=== PATIENT | female | born 1995 | race American Indian/Alaskan Native ===

== ENCOUNTER 2016-10-13 09:56 | Emergency (ER) | payer MEDICAID, OTHER ==
[2016-10-13 10:15] VITALS: BP 111/71
[2016-10-13 10:37] LABS: Basophils % (Auto) 0.5 % (0.0-1.8); Eosinophils % (Auto) 2.3 % (0.0-4.3); Hematocrit 42.1 % (30.3-42.9); Hemoglobin 13.8 gm/dl (10.1-14.3); Mean Corpuscular HGB Conc 33 % (30-34); Mean Corpuscular Hemoglobin 30 pg (28-32); Mean Corpuscular Volume 91 fl (79-97); Platelet Count 219 K/mm3 (140-440); Red Blood Count 4.63 M/mm3 (3.65-5.03); Red Cell Distribution Width 15.4 % (13.2-15.2); White Blood Count 6.6 K/mm3 (4.5-11.0)
--- NOTE | 2016-10-13 12:22 | Ultrasound Report ---
ULTRASOUND PELVIS COMPLETE - TRANSABDOMINAL AND TRANSVAGINAL: INDICATION: , vaginal spotting. Serum beta-hCG < 2 units today. COMPARISON: None similar. FINDINGS: Transabdominal and transvaginal pelvic sonography demonstrates a 9.1 x 4.9 x 5.1 cm anteverted uterus with few tiny nonspecific echogenicities. Endometrial thickness 1.2 cm towards the fundus. No evidence of an intrauterine gestation. Normal bilateral ovaries, estimated at 1.3 x 0.8 x 1 cm on the right and 2.5 x 1.6 x 1.3 cm on the left. CONCLUSION: Physiologic pelvic sonogram, as described. Thank you for the opportunity to participate in this patient's care.
[2016-10-13 13:48] LABS: Bilirubin,Urine NEG (Negative); Blood,Urine NEG (Negative); Ketones,Urine TR mg/dL (Negative); Leukocyte Esterase,Urine NEG (Negative); Mucus,Urine 3+ /HPF; Nitrite,Urine NEG (Negative); Protein,Urine <15 mg/dL mg/dL (Negative); Urobilinogen,Urine < 2.0 mg/dL (<2.0)
--- NOTE | 2016-10-13 18:48 | Emergency Department Report ---
Entered by SYLVIA VELASCO, acting as scribe for KALEY MILLER NP. ED Female HPI - General Chief complaint: Urogenital-Female Stated complaint: EVAL FOR ECTOPIC Time Seen by Provider: 10/13/16 12:04 Source: patient Mode of arrival: Ambulatory Limitations: No Limitations - History of Present Illness Initial comments: This is a 20 year old female nontoxic, well nourished in appearance, no acute signs of distress, P:1, presents to ED for evaluation of test 3 weeks ago. Patient states she had a positive at a resource center in [place] 3 weeks ago, but a negative for via ultrasound yesterday in the resource center. Patient states she was referred to ER r/o ectopic . Patient reports vaginal spotting three weeks ago after being seen in the resource center for 4 days. Patient linda denies vaginal bleeding. Denies vaginal discharge, urinary symptoms, abdominal pain, pelvic pain, nausea , dysuria, frequency, urgency, vomiting, fever, chills, headache, chest pain, shortness of breathe, stiff neck, or dizziness. LMP: 08/18/16. -: Gradual, week(s) (3) Severity scale (0 -10): 0 Are you Now?: No Last Menstrual Period: 08/18/16 EDC: 05/25/17 Associated Symptoms: denies other symptoms. denies: vaginal discharge, vaginal bleeding, abdominal pain, nausea/vomiting, fever/chills, headaches, loss of appetite, dysuria, hematuria, rash, seizure, syncope, weakness - Related Data Sexually active: Yes : 2 Para: 1 Home Medications Medication Instructions Recorded Confirmed Last Taken No Known Home Medications [No 10/13/16 10/13/16 Unknown Reported Home Medications] Allergies Allergy/AdvReac Type Severity Reaction Status Date / Time No Known Allergies Allergy Verified 10/13/16 10:08 ED Review of Systems Comment: All other systems reviewed and negative Constitutional: denies: chills, fever Eyes: denies: eye pain, eye discharge, vision change ENT: denies: ear pain, throat pain Respiratory: denies: cough, shortness of breath, wheezing Cardiovascular: denies: chest pain, palpitations Endocrine: no symptoms reported Gastrointestinal: denies: abdominal pain, nausea, diarrhea Genitourinary: denies: urgency, dysuria, frequency, discharge Musculoskeletal: denies: back pain, joint swelling, arthralgia, myalgia Skin: denies: rash, lesions Neurological: denies: headache, weakness, numbness, paresthesias Psychiatric: denies: anxiety, depression Hematological/Lymphatic: denies: easy bleeding, easy bruising ED Past Medical Hx - Past Medical History Previous Medical History?: No Hx Hypertension: No Hx Congestive Heart Failure: No Hx Diabetes: No Hx Deep Vein Thrombosis: No Hx Renal Disease: No Hx Sickle Cell Disease: No Hx Seizures: No Hx Asthma: No Hx COPD: No Hx HIV: No - Surgical History Additional Surgical History: - Social History Smoking Status: Former Smoker Substance Use Type: None - Medications Home Medications: Home Medications Medication Instructions Recorded Confirmed Last Taken Type No Known Home Medications [No 10/13/16 10/13/16 Unknown History Reported Home Medications] ED Physical Exam - General Limitations: No Limitations General appearance: alert, in no apparent distress - Head Head exam: Present: atraumatic, normocephalic, normal inspection - Eye Eye exam: Present: normal appearance, PERRL, EOMI. Absent: scleral icterus, conjunctival injection, nystagmus, periorbital swelling, periorbital tenderness Pupils: Present: normal accommodation. Absent: irregular - ENT ENT exam: Present: normal exam, normal orophraynx, mucous membranes moist, TM's normal bilaterally, normal external ear exam - Neck Neck exam: Present: normal inspection, full ROM. Absent: tenderness, meningismus, lymphadenopathy, thyromegaly - Respiratory Respiratory exam: Present: normal lung sounds bilaterally. Absent: respiratory distress, wheezes, rales, rhonchi, stridor, chest wall tenderness, accessory muscle use, decreased breath sounds, prolonged expiratory - Cardiovascular Cardiovascular Exam: Present: regular rate, normal rhythm, normal heart sounds. Absent: bradycardia, tachycardia, irregular rhythm, systolic murmur, diastolic murmur, rubs, gallop - GI/Abdominal GI/Abdominal exam: Present: soft, normal bowel sounds. Absent: distended, tenderness, guarding, rebound, rigid, diminished bowel sounds - Rectal Rectal exam: Present: deferred - External exam: Present: normal external exam. Absent: erythema, swelling, lesions, lacerations, ecchymosis, bleeding Speculum exam: Present: normal speculum exam, other (OS closed. sales strategy manager Sylvia Humpry present during exam). Absent: erythema, vaginal discharge, cervical discharge, vaginal bleeding, foreign body, tissue, laceration Bi-manual exam: Present: normal bi-manual exam, other (sales strategy manager Sylvia Humpry present during exam). Absent: cervical motion tendernes, adnexal tenderness, adnexal mass, uterine enlargement, uterine tenderness - Extremities Exam Extremities exam: Present: normal inspection, full ROM, normal capillary refill. Absent: tenderness, pedal edema, joint swelling, calf tenderness - Back Exam Back exam: Present: normal inspection, full ROM. Absent: tenderness, CVA tenderness (R), CVA tenderness (L), muscle spasm, paraspinal tenderness, vertebral tenderness, rash noted - Neurological Exam Neurological exam: Present: alert, oriented X3, CN II-XII intact, normal gait, reflexes normal - Psychiatric Psychiatric exam: Present: normal affect, normal mood - Skin Skin exam: Present: warm, dry, intact, normal color. Absent: rash ED Course Vital Signs 10/13/16 10:10 Temperature 98.1 F Pulse Rate 80 Respiratory 18 Rate Blood Pressure 111/71 O2 Sat by Pulse 100 Oximetry - Reevaluation(s) Reevaluation #1: 10/13/16 13:24 Patient is able to speak in full sentences with no signs of distress noted. ED Medical Decision Making - Lab Data Result diagrams: 10/13/16 10:23 - Medical Decision Making Ed course: This is a 20-year-old female that presents with mischarge 1- patient was examined by myself. sales strategy manager Sylvia Humpry present during vaginal exam. OS clsoed. No signs of bleeding. NO abd pain. US pelvic and transvaginal obtained with no IUG. 2- Patient was notified of US finding with no questions noted by the patient. 3- Patient was instructed to follow-up with a anesthesiologist and critical care in 3-5 days or symptoms such as increased bleeding, pelvic pain, abdominal pain, fever, chills , nausea or vomiting returns or emergency room as was possible. 4- At time time of discharge, the patient does not seem toxic or ill in appearance. No acute signs of distress noted. Patient agrees to discharge treatment plan of care. No further questions noted by the patient. ED Disposition Clinical Impression: Miscarriage Disposition: DC-01 TO HOME OR SELFCARE Is pt being admited?: No Does the pt Need Aspirin: No Condition: Stable Instructions: Spontaneous Miscarriage (ED) Additional Instructions: follow-up with a anesthesiologist and critical care in 3-5 days or symptoms such as increased bleeding , pelvic pain, abdominal pain, fever, chills, nausea or vomiting returns or emergency room as was possible. Referrals: PRIMARY CARE, [Primary Care Provider] - 3-5 Days DEANDRE PAINTER MD [Staff Physician] - 3-5 Days [facility] [Outside] - 3-5 Days [facility] [Outside] - 3-5 Days Forms: Work/School Release Form(ED) This documentation as recorded by the ROD kirkpatrick PEARL,accurately reflects the service I personally performed and the decisions made by me,KALEY MILLER, BREEDER SERVICE TECHNICIAN.
== END 2016-10-13 14:09 | disposition home or self-care (01) ==
LOC: ED 09:56
DX: O03.9 Complete or unspecified spontaneous abortion without complication (principal); Z87.891 Personal history of nicotine dependence
CPT/HCPCS: 36415; 76830; 76856; 81001; 84702; 85025; 99284

== ENCOUNTER 2017-01-04 19:36 | Emergency (ER) | payer SELFPAY ==
[2017-01-04 20:47] LABS: Basophils % (Auto) 0.5 % (0.0-1.8); Eosinophils % (Auto) 1.5 % (0.0-4.3); Hematocrit 42.9 % (30.3-42.9); Hemoglobin 14.2 gm/dl (10.1-14.3); Mean Corpuscular HGB Conc 33 % (30-34); Mean Corpuscular Hemoglobin 30 pg (28-32); Mean Corpuscular Volume 90 fl (79-97); Platelet Count 215 K/mm3 (140-440); Red Blood Count 4.74 M/mm3 (3.65-5.03); Red Cell Distribution Width 13.8 % (13.2-15.2); White Blood Count 6.9 K/mm3 (4.5-11.0)
[2017-01-05 01:44] VITALS: BP 109/70
[2017-01-05] MEDS ORDERED: ANTIBIOTIC OINT TP ONE (04:05)
--- NOTE | 2017-01-05 04:05 | Emergency Department Report ---
ED General Adult HPI - General Chief complaint: Vaginal Bleeding Stated complaint: BREAST PAIN Time Seen by Provider: 01/05/17 03:55 Source: patient, RN notes reviewed Mode of arrival: Ambulatory Limitations: No Limitations - History of Present Illness Initial comments: This is a 21-year-old female, the patient is previously unknown to this provider , the patient presents to the ER the complaint of bilateral breast discomfort, discharge, and skin discoloration. This has been going on for the past week. It is constant. It does not have exacerbating or relieving factors. Contrary to what is documented in the triage nurse note, the patient does not complain of abdominal pain to this provider. She denies headache, neck pain, chest pain , abdominal pain, irritative/obstructive urinary symptoms, vaginal discharge, vaginal discomfort, and sore throat. -: Gradual Location: chest Radiation: non-radiation Severity scale (0 -10): 6 Quality: aching Consistency: constant Improves with: none Worsens with: none Associated Symptoms: denies other symptoms - Related Data Previous Rx's Medication Instructions Recorded Last Taken Type Bacitracin Zinc Oint [Antibiotic 28.4 gm TP BID #1 oint...g. 01/05/17 Unknown Rx Oint] Allergies Allergy/AdvReac Type Severity Reaction Status Date / Time No Known Allergies Allergy Verified 10/13/16 10:08 ED Review of Systems ROS: Stated complaint: BREAST PAIN Other details as noted in HPI Constitutional: denies: fever Eyes: denies: eye discharge ENT: denies: epistaxis Respiratory: denies: cough Cardiovascular: denies: syncope Gastrointestinal: denies: vomiting Genitourinary: denies: urgency, dysuria Skin: rash, lesions Neurological: denies: weakness ED Past Medical Hx - Past Medical History Previous Medical History?: No Hx Hypertension: No Hx Congestive Heart Failure: No Hx Diabetes: No Hx Deep Vein Thrombosis: No Hx Renal Disease: No Hx Sickle Cell Disease: No Hx Seizures: No Hx Asthma: No Hx COPD: No Hx HIV: No - Surgical History Past Surgical History?: Yes Additional Surgical History: - Social History Smoking Status: Former Smoker Substance Use Type: None - Medications Home Medications: Home Medications Medication Instructions Recorded Confirmed Last Taken Type Bacitracin Zinc Oint [Antibiotic 28.4 gm TP BID #1 oint...g. 01/05/17 Unknown Rx Oint] ED Physical Exam - General Limitations: No Limitations General appearance: alert, in no apparent distress - Head Head exam: Present: atraumatic, normocephalic - Eye Eye exam: Present: normal appearance, EOMI. Absent: nystagmus - ENT ENT exam: Present: normal exam, normal orophraynx, mucous membranes moist, normal external ear exam - Neck Neck exam: Present: normal inspection, full ROM. Absent: tenderness, meningismus - Respiratory Respiratory exam: Present: normal lung sounds bilaterally (escorted by rn Deanne proctor during breast exam), other (the bilateral breast exam demonstrates hyperpigmentation around the bilateral aeroli, excoriations, and puslike discharge. The breasts are otherwise nontender, and there is no axillary adenopathy). Absent: respiratory distress, wheezes, rales, rhonchi, stridor, chest wall tenderness - Cardiovascular Cardiovascular Exam: Present: regular rate, normal rhythm, normal heart sounds. Absent: bradycardia, tachycardia, irregular rhythm, systolic murmur, diastolic murmur, rubs, gallop - GI/Abdominal GI/Abdominal exam: Present: soft, normal bowel sounds. Absent: distended, tenderness, guarding, rebound, rigid, pulsatile mass - Extremities Exam Extremities exam: Present: normal inspection, full ROM, normal capillary refill. Absent: pedal edema, joint swelling, calf tenderness - Back Exam Back exam: Present: normal inspection, full ROM. Absent: tenderness, CVA tenderness (R), CVA tenderness (L), muscle spasm, paraspinal tenderness, vertebral tenderness - Neurological Exam Neurological exam: Present: alert, oriented X3, normal gait, other (Extraocular movements intact. Tongue midline. No facial droop. Facial sensation intact to light touch in the V1, V2, V3 distribution bilaterally. 5 and 5 strength in 4 extremities.. Sensation is intact to light touch in 4 extremities.). Absent : motor sensory deficit - Psychiatric Psychiatric exam: Present: normal affect, normal mood - Skin Skin exam: Present: warm, rash. Absent: intact ED Course Vital Signs 01/04/17 01/05/17 20:16 01:42 Temperature 98.5 F 98.1 F Pulse Rate 70 67 Respiratory 20 20 Rate Blood Pressure 125/78 109/70 O2 Sat by Pulse 100 99 Oximetry ED Medical Decision Making - Lab Data Result diagrams: 01/04/17 20:26 Vital Signs 01/04/17 01/05/17 20:16 01:42 Temperature 98.5 F 98.1 F Pulse Rate 70 67 Respiratory 20 20 Rate Blood Pressure 125/78 109/70 O2 Sat by Pulse 100 99 Oximetry Lab Results 01/04/17 01/04/17 01/04/17 Range/Units 20:26 20:26 20:26 WBC 6.9 (4.5-11.0) K/mm3 RBC 4.74 (3.65-5.03) M/mm3 Hgb 14.2 (10.1-14.3) gm/dl Hct 42.9 (30.3-42.9) % MCV 90 (79-97) fl MCH 30 (28-32) pg MCHC 33 (30-34) % RDW 13.8 (13.2-15.2) % Plt Count 215 (140-440) K/mm3 Lymph % (Auto) 50.9 H (13.4-35.0) % [place] % (Auto) 8.5 H (0.0-7.3) % Eos % (Auto) 1.5 (0.0-4.3) % Baso % (Auto) 0.5 (0.0-1.8) % Lymph # 3.5 (1.2-5.4) K/mm3 [place] # 0.6 (0.0-0.8) K/mm3 Eos # 0.1 (0.0-0.4) K/mm3 Baso # 0.0 (0.0-0.1) K/mm3 Seg Neutrophils % 38.6 L (40.0-70.0) % Seg Neutrophils # 2.7 (1.8-7.7) K/mm3 HCG, Quant < 2 (0-4) mIU/mL Urine Color (Yellow) Urine Turbidity (Clear) Urine pH (5.0-7.0) Ur Specific [place] (1.003-1.030) Urine Protein (Negative) mg/dL Urine Glucose (UA) (Negative) mg/dL Urine Ketones (Negative) mg/dL Urine Blood (Negative) Urine Nitrite (Negative) Urine Bilirubin (Negative) Urine Urobilinogen (<2.0) mg/dL Ur Leukocyte Esterase (Negative) Urine WBC (Auto) (0.0-6.0) /HPF Urine RBC (Auto) (0.0-6.0) /HPF U Epithel Cells (Auto) (0-13.0) /HPF Urine Mucus /HPF Blood Type A POSITIVE Antibody Screen TNR JUNIOR Antibody Screen Negative 01/05/17 Range/Units 03:42 WBC (4.5-11.0) K/mm3 RBC (3.65-5.03) M/mm3 Hgb (10.1-14.3) gm/dl Hct (30.3-42.9) % MCV (79-97) fl MCH (28-32) pg MCHC (30-34) % RDW (13.2-15.2) % Plt Count (140-440) K/mm3 Lymph % (Auto) (13.4-35.0) % [place] % (Auto) (0.0-7.3) % Eos % (Auto) (0.0-4.3) % Baso % (Auto) (0.0-1.8) % Lymph # (1.2-5.4) K/mm3 [place] # (0.0-0.8) K/mm3 Eos # (0.0-0.4) K/mm3 Baso # (0.0-0.1) K/mm3 Seg Neutrophils % (40.0-70.0) % Seg Neutrophils # (1.8-7.7) K/mm3 HCG, Quant (0-4) mIU/mL Urine Color Yellow (Yellow) Urine Turbidity Clear (Clear) Urine pH 6.0 (5.0-7.0) Ur Specific [place] 1.031 H (1.003-1.030) Urine Protein 100 mg/dl (Negative) mg/dL Urine Glucose (UA) Neg (Negative) mg/dL Urine Ketones 80 (Negative) mg/dL Urine Blood Lg (Negative) Urine Nitrite Neg (Negative) Urine Bilirubin Neg (Negative) Urine Urobilinogen 4.0 (<2.0) mg/dL Ur Leukocyte Esterase Tr (Negative) Urine WBC (Auto) 25.0 H (0.0-6.0) /HPF Urine RBC (Auto) > 182.0 (0.0-6.0) /HPF U Epithel Cells (Auto) 1.0 (0-13.0) /HPF Urine Mucus 3+ /HPF Blood Type Antibody Screen JUNIOR Antibody Screen - Medical Decision Making Differential diagnosis: Cancer, malignancy, pressure ulcers, skin excoriation Assessment and plan: 21-year-old female with excoriated pimples and pressure sensitive areas, reports wearing a new brassiere, does not appear to be superinfected, patient is instructed to use a brassiere that is less tight, she' ll be given bacitracin, and is instructed to follow-up with either outpatient primary care or breast physician to exclude atypical presentation of malignancy. Critical care attestation.: If time is entered above; I have spent that time in minutes in the direct care of this critically ill patient, excluding procedure time. ED Disposition Clinical Impression: Breast lesion Disposition: TO HOME OR SELFCARE Is pt being admited?: No Does the pt Need Aspirin: No Condition: Stable Instructions: Breast Self-exam (ED), Breast Mass (ED) Additional Instructions: Follow up with any of the listed primary care doctor/breast specialist/ tanning salon attendant within the next month. Start to wear a brassiere that is less tight, and apply bacitracin antibiotic ointment as is needed. It is very important to follow-up with an outpatient physician/breast specialist to exclude cancer/tumor/malignancy. Return to the ER right away with new pain, worsening pain, migration of pain, fevers, chills, lethargy, irritability, projectile vomiting, change in mental status, confusion, loss of consciousness, inability to tolerate liquid feeds. Referrals: PRIMARY CAREMD [Primary Care Provider] - 3-5 Days HIRO UP MD [Staff Physician] - 3-5 Days [facility] [Provider Group] - 3-5 Days [facility] [Provider Group] - 3-5 Days [facility] [Provider Group] - 3-5 Days
[2017-01-05 04:06] LABS: Bilirubin,Urine NEG (Negative); Blood,Urine LG (Negative); Ketones,Urine 80 mg/dL (Negative); Leukocyte Esterase,Urine TR (Negative); Mucus,Urine 3+ /HPF; Nitrite,Urine NEG (Negative)
[2017-01-05 04:10] LABS: RBC,Urine > 182.0 /HPF (0.0-6.0)
== END 2017-01-05 04:35 | disposition home or self-care (01) ==
LOC: ED 19:36
DX: N63.0 Unspecified lump in unspecified breast (principal); Z87.891 Personal history of nicotine dependence; Z98.890 Other specified postprocedural states
CPT/HCPCS: 36415; 81001; 84702; 85025; 86850; 86900; 86901; 99283

== ENCOUNTER 2017-09-17 16:43 | Emergency (ER) | payer MEDICAID ==
[2017-09-17 17:15] LABS: Bilirubin,Urine NEG (Negative); Blood,Urine NEG (Negative); Color,Urine Yellow (Yellow); Mucus,Urine 3+ /HPF; Protein,Urine <15 mg/dL mg/dL (Negative)
[2017-09-17 17:17] LABS: HCG Qualitative,Urine Positive (Negative)
--- NOTE | 2017-09-17 19:21 | Emergency Department Report ---
ED Female HPI - General Chief complaint: Abdominal Pain Stated complaint: ABDOMINAL PAIN Time Seen by Provider: 09/17/17 19:13 Source: patient Mode of arrival: Ambulatory Limitations: No Limitations - History of Present Illness Initial comments: 21-year-old female past medical history none presents with complaint of intermittent crampy pain for several days. Patient states she may have had some spotting 2 weeks ago. Patient states that she was previously on Depo- Provera and has had irregular periods for several months. Stopped up O4 months ago. Patient unsure if she is currently . Complaining of breast swelling and morning nausea alert and oriented 3. Also complaining of slight dysuria. Denies any vaginal discharge or hematuria or current vaginal bleeding. Pain is mild. Awake alert and oriented 3 nontoxic appearing. MD Complaint: pelvic pain Onset/Timin -: days(s) Location: suprapubic Severity: mild Quality: cramping Consistency: intermittent - Related Data Sexually active: Yes : 2 Para: 1 Previous Rx's Medication Instructions Recorded Last Taken Type Bacitracin Zinc Oint [Antibiotic 28.4 gm TP BID #1 oint...g. 01/05/17 Unknown Rx Oint] Acetaminophen [Acetaminophen TAB] 500 mg PO Q6HR PRN #20 tablet 09/17/17 Unknown Rx Doxylamine Succinate/Vit B6 1 each PO QHS PRN #20 tablet. 09/17/17 Unknown Rx [Dicnatasha Alcantar 10-10 mg Tablet] Nitrofurantoin Monohyd/M-Cryst 100 mg PO BID #14 capsule 09/17/17 Unknown Rx [Macrobid 100 mg Capsule] 21/Iron Fu/Folic Acid 1 each PO QDAY #30 tablet 09/17/17 Unknown Rx [ Complete Caplet] Allergies Allergy/AdvReac Type Severity Reaction Status Date / Time No Known Allergies Allergy Verified 09/17/17 16:48 ED Review of Systems ROS: Stated complaint: ABDOMINAL PAIN Other details as noted in HPI Constitutional: denies: chills, fever Eyes: denies: eye pain, eye discharge, vision change ENT: denies: ear pain, throat pain Respiratory: denies: cough, shortness of breath, wheezing Cardiovascular: denies: chest pain, palpitations Endocrine: no symptoms reported Gastrointestinal: denies: abdominal pain, nausea, diarrhea Genitourinary: denies: urgency, dysuria, discharge Musculoskeletal: denies: back pain, joint swelling, arthralgia Skin: denies: rash, lesions Neurological: denies: headache, weakness, paresthesias Psychiatric: denies: anxiety, depression Hematological/Lymphatic: denies: easy bleeding, easy bruising ED Past Medical Hx - Past Medical History Hx Hypertension: No Hx Congestive Heart Failure: No Hx Diabetes: No Hx Deep Vein Thrombosis: No Hx Renal Disease: No Hx Sickle Cell Disease: No Hx Seizures: No Hx Asthma: No Hx COPD: No Hx HIV: No - Surgical History Additional Surgical History: - Social History Smoking Status: Never Smoker Substance Use Type: Alcohol - Medications Home Medications: Home Medications Medication Instructions Recorded Confirmed Last Taken Type Bacitracin Zinc Oint [Antibiotic 28.4 gm TP BID #1 oint...g. 01/05/17 Unknown Rx Oint] Acetaminophen [Acetaminophen TAB] 500 mg PO Q6HR PRN #20 tablet 09/17/17 Unknown Rx Doxylamine Succinate/Vit B6 1 each PO QHS PRN #20 tablet. 09/17/17 Unknown Rx [Diclegis Dr 10-10 mg Tablet] Nitrofurantoin Monohyd/M-Cryst 100 mg PO BID #14 capsule 09/17/17 Unknown Rx [Macrobid 100 mg Capsule] 21/Iron Fu/Folic Acid 1 each PO QDAY #30 tablet 09/17/17 Unknown Rx [ Complete Caplet] ED Physical Exam - General Limitations: No Limitations General appearance: alert, in no apparent distress - Head Head exam: Present: atraumatic, normocephalic - Eye Eye exam: Present: normal appearance - ENT ENT exam: Present: mucous membranes moist - Neck Neck exam: Present: normal inspection - Respiratory Respiratory exam: Present: normal lung sounds bilaterally. Absent: respiratory distress - Cardiovascular Cardiovascular Exam: Present: regular rate, normal rhythm. Absent: systolic murmur, diastolic murmur, rubs, gallop - GI/Abdominal GI/Abdominal exam: Present: soft, normal bowel sounds - External exam: Present: normal external exam Speculum exam: Present: normal speculum exam Bi-manual exam: Present: normal bi-manual exam - Extremities Exam Extremities exam: Present: normal inspection - Back Exam Back exam: Present: normal inspection - Neurological Exam Neurological exam: Present: alert, oriented X3 - Psychiatric Psychiatric exam: Present: normal affect, normal mood - Skin Skin exam: Present: warm, dry, intact, normal color. Absent: rash ED Course Vital Signs 09/17/17 16:48 Temperature 98.0 F Pulse Rate 106 H Respiratory 20 Rate Blood Pressure 134/78 O2 Sat by Pulse 99 Oximetry ED Medical Decision Making - Lab Data Result diagrams: 09/17/17 19:46 09/17/17 19:46 - Medical Decision Making A/P: Early versus ectopic, morning sickness, UTI 1-Macrobid empirically for UTI, urine culture sent 2-case discussed with on-call physician for [facility] [employer] Dr. Juan Manuel Zavala. I discussed results of ultrasound and clinical symptoms and hCG level. Patient to follow-up in office or in the ED in 48 hours for repeat beta level and possible ultrasound. 3-pt given strict ectopic precautions to return to the ED for any severe abdominal pain severe vaginal hemorrhage fevers chills persistent nausea and vomiting 4- vital signs stable for discharge. Patient is Rh+ Critical care attestation.: If time is entered above; I have spent that time in minutes in the direct care of this critically ill patient, excluding procedure time. ED Disposition Clinical Impression: Morning sickness Qualifiers: Weeks of gestation: less than 8 weeks Qualified Code(s): Z3A.01 - Less than 8 weeks gestation of Abdominal pain Qualifiers: Abdominal location: unspecified location Qualified Code(s): R10.9 - Unspecified abdominal pain Disposition: DC-01 TO HOME OR SELFCARE Is pt being admited?: No Does the pt Need Aspirin: No Condition: Stable Instructions: Ectopic (ED), Morning Sickness (ED), (ED), Abdominal Pain (ED) Additional Instructions: Patient advised to follow-up in office or in the ED in 48 hours for repeat blood work and possible ultrasound. Patient given precautions to return to the ED for any heavy vaginal bleeding nausea vomiting fever chills or severe abdominal pain. Prescriptions: Doxylamine Succinate/Vit B6 [Shivam Alcantar 10-10 mg Tablet] 1 each PO QHS PRN #20 tablet. PRN Reason: Nausea Acetaminophen [Acetaminophen TAB] 500 mg PO Q6HR PRN #20 tablet PRN Reason: Pain , Severe (7-10) Nitrofurantoin Monohyd/M-Cryst [Macrobid 100 mg Capsule] 100 mg PO BID #14 capsule 21/Iron Fu/Folic Acid [ Complete Caplet] 1 each PO QDAY #30 tablet Referrals: [facility] [Provider Group] - 3-5 Days JUAN MANUEL ZAVALA MD [Staff Physician] - 3-5 Days Time of Disposition: 22:13
[2017-09-17 20:13] LABS: Basophils % (Auto) 0.3 % (0.0-1.8); Eosinophils % (Auto) 0.3 % (0.0-4.3); Hematocrit 43.6 % (30.3-42.9); Hemoglobin 14.3 gm/dl (10.1-14.3); Lymphocytes # (Auto) 1.4 K/mm3 (1.2-5.4); Lymphocytes % (Auto) 20.3 % (13.4-35.0); Mean Corpuscular HGB Conc 33 % (30-34); Mean Corpuscular Hemoglobin 30 pg (28-32); Mean Corpuscular Volume 93 fl (79-97); Monocytes # (Auto) 0.6 K/mm3 (0.0-0.8); Monocytes % (Auto) 8.8 % (0.0-7.3); Platelet Count 214 K/mm3 (140-440); Red Cell Distribution Width 14.6 % (13.2-15.2)
[2017-09-17 20:22] LABS: BUN/Creatinine Ratio 20; Blood Urea Nitrogen 10 mg/dL (7-17); Calcium 9.3 mg/dL (8.4-10.2); Hemolysis Index 7
--- NOTE | 2017-09-17 20:30 | Ultrasound Report ---
FINAL REPORT EXAM: US OB TRANSVAGINAL HISTORY: preg w/ abd pain positive urine test, LMP unknown, pelvic pain and cramping TECHNIQUE: Transvesical and endovaginal pelvic sonographic imaging were performed. Comparison: None FINDINGS: The uterus is normally anteverted measuring 8.7 x 4.7 x 5.6 centimeters. There is endometrial canal fluid. No gestational sac is identified. Right ovary measures 3.3 x 2.1 x 2.5 centimeters, with normal color flow and normal sonographic appearance. Left ovary measures 2.6 x 1.8 x 1.8 centimeters with multiple small follicles and a dominant 1.3 centimeter crenated appearing cystic lesion. No free pelvic fluid. IMPRESSION: No intrauterine gestation identified. Endometrial canal fluid identified. Left adnexal crenating appearing 1.3 centimeter cystic lesion. No ring of fire identified to suggest ectopic although ectopic cannot be excluded. Recommend correlation with serial beta hCGs and follow-up ultrasound.
--- NOTE | 2017-09-17 20:31 | Ultrasound Report ---
FINAL REPORT EXAM: US OB < = 14 WEEKS FETUS HISTORY: , abd pain LMP unknown, positive urine test TECHNIQUE: Transvesical and endovaginal pelvic sonographic imaging were performed. Comparison: None FINDINGS: The uterus is normally anteverted measuring 8.7 x 4.7 x 5.6 centimeters. There is endometrial canal fluid. No gestational sac is identified. Right ovary measures 3.3 x 2.1 x 2.5 centimeters, with normal color flow and normal sonographic appearance. Left ovary measures 2.6 x 1.8 x 1.8 centimeters with multiple small follicles and a dominant 1.3 centimeter crenated appearing cystic lesion. No free pelvic fluid. IMPRESSION: No intrauterine gestation identified. Endometrial canal fluid identified. Left adnexal crenating appearing 1.3 centimeter cystic lesion. No ring of fire identified to suggest ectopic although ectopic cannot be excluded. Recommend correlation with serial beta hCGs and follow-up ultrasound.
[2017-09-17] MEDS ORDERED: MACROBID PO ONE (22:15)
[2017-09-17 23:32] VITALS: BP 130/66
== END 2017-09-17 22:32 | disposition home or self-care (01) ==
LOC: ED 16:43
DX: O26.891 Other specified pregnancy related conditions, first trimester (principal); R10.9 Unspecified abdominal pain; Z3A.01 Less than 8 weeks gestation of pregnancy
CPT/HCPCS: 36415; 76801; 76817; 80048; 81001; 81025; 84702; 85025; 86900; 86901; 99284

== ENCOUNTER 2017-11-25 10:23 | Emergency (ER) | payer MEDICAID ==
--- NOTE | 2017-11-25 11:32 | Emergency Department Report ---
ED Abdominal Pain HPI - General Chief Complaint: Nausea/Vomiting/Diarrhea Stated Complaint: 14WKS /VOMITING Time Seen by Provider: 11/25/17 11:23 Source: patient, family Mode of arrival: Ambulatory Limitations: No Limitations - History of Present Illness Initial Comments: Patient report nausea vomiting for 5-6 days. She says she has an appointment with her [facility] in Monday which [facility]. She says she had no problems with her but she is having some abdominal cramping also. Crepitus to her upper abdomen. Patient says she feels weak because she cannot eat anything. Denies any vaginal bleeding or discharge. She says she is in THE PAST AND EVERYTHING WAS FINE. PATIENT ABDOMEN IS 6 OUT OF 10 CRAMPING AND AN INTERMITTENT NO MEDICATION TAKEN. PATIENT WAS HERE ON 09/17/2017 AND WAS GIVEN PRESCRIPTION FOR Diclegis JUST AND ALSO TREATED FOR URINARY TRACT INFECTION SHE SAYS SHE DOES NOT REMEMBER GIVEN A PRESCRIPTION FOR Diclegis SO THEREFORE SHE IS NOT TAKEN MEDICINE. Denies any urinary burning, frequency or urgency. Denies any back pain or fever or chills. Denies any shortness of breath or chest pain. MD Complaint: abdominal pain, other (nausea and vomiting) Onset/Timin -: days(s) Location: epigastric Radiation: none Migration to: no migration Severity: moderate Severity scale (0 -10): 6 Quality: cramping Consistency: intermittent Improves With: nothing Worsens With: nothing Associated Symptoms: nausea, vomiting, other (feeling weak). denies: diarrhea, fever, chills, constipation, dysuria, hematemesis, hematochezia, melena, hematuria, anorexia, syncope Treatments Prior to Arrival: other ( none) - Related Data LMP (females 10-50): Previous Rx's Medication Instructions Recorded Last Taken Type Bacitracin Zinc Oint [Antibiotic 28.4 gm TP BID #1 oint...g. 01/05/17 Unknown Rx Oint] Acetaminophen [Acetaminophen TAB] 500 mg PO Q6HR PRN #20 tablet 09/17/17 Unknown Rx Nitrofurantoin Monohyd/M-Cryst 100 mg PO BID #14 capsule 09/17/17 Unknown Rx [Macrobid 100 mg Capsule] 21/Iron Fu/Folic Acid 1 each PO QDAY #30 tablet 09/17/17 Unknown Rx [ Complete Caplet] Doxylamine Succinate/Vit B6 1 each PO QHS PRN #30 tablet. 11/25/17 Unknown Rx [Shivam Alcantar 10-10 mg Tablet] cephALEXin [Keflex] 500 mg PO Q12H 7 Days #14 cap 11/25/17 Unknown Rx Allergies Allergy/AdvReac Type Severity Reaction Status Date / Time No Known Allergies Allergy Verified 11/25/17 10:28 ED Review of Systems ROS: Stated complaint: 14WKS /VOMITING Other details as noted in HPI Constitutional: weakness. denies: chills, fever Eyes: denies: eye pain, eye discharge, vision change ENT: denies: ear pain, throat pain, congestion Respiratory: denies: cough, shortness of breath, SOB with exertion, SOB at rest , stridor, wheezing Cardiovascular: denies: chest pain, palpitations, dyspnea on exertion, edema, syncope Gastrointestinal: abdominal pain, nausea, vomiting. denies: diarrhea, constipation, hematemesis, hematochezia Genitourinary: denies: urgency, dysuria, frequency, hematuria, discharge Musculoskeletal: denies: back pain, joint swelling, arthralgia Skin: denies: rash, lesions Neurological: weakness. denies: headache, paresthesias ED Past Medical Hx - Past Medical History Previous Medical History?: No Hx Hypertension: No Hx Congestive Heart Failure: No Hx Diabetes: No Hx Deep Vein Thrombosis: No Hx Renal Disease: No Hx Sickle Cell Disease: No Hx Seizures: No Hx Asthma: No Hx COPD: No Hx HIV: No - Surgical History Past Surgical History?: Yes Additional Surgical History: - Family History Family history: hypertension - Social History Smoking Status: Never Smoker Substance Use Type: None - Medications Home Medications: Home Medications Medication Instructions Recorded Confirmed Last Taken Type Bacitracin Zinc Oint [Antibiotic 28.4 gm TP BID #1 oint...g. 01/05/17 Unknown Rx Oint] Acetaminophen [Acetaminophen TAB] 500 mg PO Q6HR PRN #20 tablet 09/17/17 Unknown Rx Nitrofurantoin Monohyd/M-Cryst 100 mg PO BID #14 capsule 09/17/17 Unknown Rx [Macrobid 100 mg Capsule] 21/Iron Fu/Folic Acid 1 each PO QDAY #30 tablet 09/17/17 Unknown Rx [ Complete Caplet] Doxylamine Succinate/Vit B6 1 each PO QHS PRN #30 tablet. 11/25/17 Unknown Rx [Shivam Alcantar 10-10 mg Tablet] cephALEXin [Keflex] 500 mg PO Q12H 7 Days #14 cap 11/25/17 Unknown Rx ED Physical Exam - General Limitations: No Limitations General appearance: alert, in no apparent distress - Head Head exam: Present: atraumatic, normocephalic, normal inspection - Eye Eye exam: Present: normal appearance, PERRL, EOMI Pupils: Present: normal accommodation - ENT ENT exam: Present: normal orophraynx, mucous membranes dry, TM's normal bilaterally, normal external ear exam. Absent: normal exam - Neck Neck exam: Present: normal inspection, full ROM. Absent: tenderness, lymphadenopathy - Respiratory Respiratory exam: Present: normal lung sounds bilaterally. Absent: respiratory distress, chest wall tenderness - Cardiovascular Cardiovascular Exam: Present: normal rhythm, tachycardia, normal heart sounds. Absent: systolic murmur, diastolic murmur - GI/Abdominal GI/Abdominal exam: Present: soft, normal bowel sounds. Absent: distended, tenderness, guarding, rebound, rigid, mass - Extremities Exam Extremities exam: Present: normal inspection, full ROM, normal capillary refill , other (No cce. + 2 pulses in all extremities, no neurovascular compromise). Absent: tenderness, pedal edema, joint swelling, calf tenderness - Back Exam Back exam: Present: normal inspection, full ROM, other (ambulates without any difficulties). Absent: tenderness, CVA tenderness (R), CVA tenderness (L), muscle spasm, paraspinal tenderness, vertebral tenderness, rash noted - Neurological Exam Neurological exam: Present: alert, oriented X3, normal gait, reflexes normal. Absent: motor sensory deficit - Psychiatric Psychiatric exam: Present: normal affect, normal mood - Skin Skin exam: Present: warm, dry, intact, normal color. Absent: rash ED Course Vital Signs 11/25/17 11/25/17 10:28 16:11 Temperature 97.5 F L Pulse Rate 124 H 94 H Respiratory 16 16 Rate Blood Pressure 113/75 Blood Pressure 107/62 [Left] O2 Sat by Pulse 99 95 Oximetry - Reevaluation(s) Reevaluation #1: 11/25/17 12:27 Patient given Zofran 4 mg IV, Reglan 10 mg IV for nausea and normal saline 1 L. Awaiting ultrasound and lab results. Reevaluation #2: 11/25/17 13:54 Patient reevaluated after getting the medication she said that she is feeling weak. Her blood glucose on chemistry is 59 so she was given cranberry juice and will be started on D5 normal saline 1 L. She completed no saline 1 L and she is able to tolerate oral fluid. She is also given Phenergan 25 mg by mouth. Ultrasound OB with normal IUP with heart tone at 1 44 bpm. Patient said that she just feeling weak from the lack of eating and drinking due to continuous nausea and vomiting Reevaluation #3: 11/25/17 15:49 Blood glucose is at 178 after D5 normal saline given. Patient able to tolerate oral liquids. She is having no abdominal pain and her nausea has been resolved and she says she is feeling a lot better. ED Medical Decision Making - Lab Data Result diagrams: 11/25/17 11:43 Lab Results 11/25/17 11/25/17 11/25/17 Range/Units 11:43 11:43 11:43 Sodium 133 L (137-145) mmol/L Potassium 4.7 (3.6-5.0) mmol/L Chloride 97.7 L (98-107) mmol/L Carbon Dioxide 17 L (22-30) mmol/L Anion Gap 23 mmol/L BUN 14 (7-17) mg/dL Creatinine 0.7 (0.7-1.2) mg/dL Estimated GFR > 60 ml/min BUN/Creatinine Ratio 20 % Glucose 59 L (65-100) mg/dL Calcium 9.6 (8.4-10.2) mg/dL HCG, Qual Positive (Negative) HCG, Quant 06362 H (0-4) mIU/mL Urine Color (Yellow) Urine Turbidity (Clear) Urine pH (5.0-7.0) Ur Specific [place] (1.003-1.030) Urine Protein (Negative) mg/dL Urine Glucose (UA) (Negative) mg/dL Urine Ketones (Negative) mg/dL Urine Blood (Negative) Urine Nitrite (Negative) Urine Bilirubin (Negative) Urine Urobilinogen (<2.0) mg/dL Ur Leukocyte Esterase (Negative) Urine WBC (Auto) (0.0-6.0) /HPF Urine RBC (Auto) (0.0-6.0) /HPF U Epithel Cells (Auto) (0-13.0) /HPF Urine Bacteria (Auto) (Negative) /HPF Urine Mucus /HPF Urine Yeast (Budding) /HPF 11/25/17 Range/Units 13:15 Sodium (137-145) mmol/L Potassium (3.6-5.0) mmol/L Chloride (98-107) mmol/L Carbon Dioxide (22-30) mmol/L Anion Gap mmol/L BUN (7-17) mg/dL Creatinine (0.7-1.2) mg/dL Estimated GFR ml/min BUN/Creatinine Ratio % Glucose (65-100) mg/dL Calcium (8.4-10.2) mg/dL HCG, Qual (Negative) HCG, Quant (0-4) mIU/mL Urine Color Yellow (Yellow) Urine Turbidity Cloudy (Clear) Urine pH 5.0 (5.0-7.0) Ur Specific [place] 1.027 (1.003-1.030) Urine Protein 100 mg/dl (Negative) mg/dL Urine Glucose (UA) Neg (Negative) mg/dL Urine Ketones 80 (Negative) mg/dL Urine Blood Neg (Negative) Urine Nitrite Neg (Negative) Urine Bilirubin Neg (Negative) Urine Urobilinogen < 2.0 (<2.0) mg/dL Ur Leukocyte Esterase Lg (Negative) Urine WBC (Auto) 9.0 H (0.0-6.0) /HPF Urine RBC (Auto) 8.0 (0.0-6.0) /HPF U Epithel Cells (Auto) 21.0 H (0-13.0) /HPF Urine Bacteria (Auto) 1+ (Negative) /HPF Urine Mucus Few /HPF Urine Yeast (Budding) Few /HPF POC glucose 178 - Radiology Data Radiology results: report reviewed Transabdominal ultrasound dictated by radiologist and report reviewed by myself. Patient with single living IUP with position in the breech position. heart rate is at 144 bpm uterus is normal and os is closed. Findings [facility] [address] [place] [address] Ultrasound Report Signed Patient: TANK RODRÍGUEZ MR#: [id number] : 1995 Acct:[id number] Age/Sex: 21 / F ADM Date: 11/25/17 Loc: ED Attending Dr: Ordering Physician: MADELEINE OHARA Date of Service: 11/25/17 Procedure(s): US OB >= 14 weeks Fetus Accession Number(s): [id number] cc: MADELEINE OHARA FINAL REPORT PROCEDURE: US OB gt; = 14 WEEKS FETUS TECHNIQUE: Real-time transabdominal sonography of the uterus, placenta, amniotic fluid, adnexa, and fetus was performed with image documentation. Measurements were obtained to determine age/size. M-mode Doppler was used to document heartbeat. CPT 90988 HISTORY: abdominal pain 14 weeks COMPARISON: No prior studies are available for comparison. FINDINGS: ADDITIONAL GESTATION: None. GENERAL: IUP: Single living intrauterine . Position: Breech Placental position: Posterior, Without previa. Amniotic fluid volume: Normal. MATERNAL: Uterus: Within normal limits. Cervical length: 4.1 cm. Internal Os: Closed. FETUS: Heart rate and rhythm: 144 beats per minute, regular MEASUREMENTS: BPD: 2.8 centimeters corresponding to 15 weeks and 0 days HC: 9.9 centimeters corresponding to 14 weeks and 4 days AC: 8.8 centimeters corresponding to 15 weeks and 0 days FL: 1.5 centimeters corresponding to 14 weeks and 3 days Mean Gestational Age (composite criteria): 14 weeks and 4 days Ratio biometry: Normal. Estimated Due Date: 05/21/2018 IMPRESSION: Single intrauterine gestation at 14 weeks and 4 days. Estimated due date: 05/21/2018. Transcribed By: [facility] Dictated By: ANNY VELASCO Electronically Authenticated By: ANNY VELASCO Signed Date/Time: 11/25/17 132 DD/ 20 TD/TT: 11/25/17 1321 - Medical Decision Making This is a 21-year-old female here report that she is having abdominal pain and nausea and vomiting over the last 5-6 days. She goes to [facility] and has an appointment in 3 days. She says she is feeling weak and denies any vaginal bleeding, discharge and no concern for STD. She said she had a cardiac STD testing. Patient was seen and examined by myself and physical exam is normal except her mucous membrane turgor mouth is dry suggesting dehydration. She has no abdominal tenderness. She had OB transabdominal ultrasound done which shows single IUP with no abnormality and heart tones at 144 bpm. blood and quantitative test correlates with ultrasound. Patient was given IV fluid normal saline 1 L. Blood glucose on chemistry was a 59 and chemistry with sodium 133. Urinalysis with ketones of 80 positive for dehydration, large amount of leukocyte esterase and bacteria urine is contaminated. We will send urine culture and will put patient on Macrobid for UTI. She is able to tolerate fluids she was given juice and also 1 L D5 normal saline and her blood glucose is 178 at present. Patient stable. Heart rates better and she says she is feeling better without any nausea or abdominal pain. She was given Zofran 4 mg IV and Reglan 10 mg IV for nausea and additional Phenergan 25 mg by mouth for relief of nausea. Patient discharged home with prescription for Digclegis just as she did not fill her last prescription and I told her to keep her appointment at [facility] in 3 days. She was also placed on Keflex as she was on Macrobid on 09/17/2017 for UTI. She voiced understanding Critical care attestation.: If time is entered above; I have spent that time in minutes in the direct care of this critically ill patient, excluding procedure time. ED Disposition Clinical Impression: Nausea and vomiting in prior to 22 weeks gestation, Abdominal pain during intrauterine , Dehydration, Hypoglycemia UTI (urinary tract infection) during Qualifiers: Trimester: second trimester Qualified Code(s): O23.42 - Unspecified infection of urinary tract in , second trimester Disposition: DC-01 TO HOME OR SELFCARE Is pt being admited?: No Does the pt Need Aspirin: No Condition: Stable Instructions: Dehydration (ED), Urinary Tract Infection in Women (ED), Non- diabetic Hypoglycemia (ED), Acute Nausea and Vomiting (ED), Abdominal Pain in (ED) Additional Instructions: Please change the hospital a few condition worsens and/or if he develops vaginal bleeding, increased abdominal pain and inability to keep food or liquids down. Keep appointment [facility] on 11/28/2017 Take nausea medication as prescribed He has a urinary tract infection and will need to increase her fluid intake and also Keflex. Prescriptions: Doxylamine Succinate/Vit B6 [Shivam Alcantar 10-10 mg Tablet] 1 each PO QHS PRN #30 tablet. PRN Reason: Nausea cephALEXin [Keflex] 500 mg PO Q12H 7 Days #14 cap Referrals: [facility] [Provider Group] - 11/28/17 Forms: Work/School Release Form(ED)
[2017-11-25] MEDS ORDERED: REGLAN IV ONE (11:34)
[2017-11-25] MEDS ORDERED: ZOFRAN IV ONE (11:34)
[2017-11-25] MEDS ORDERED: NACL 0.9% 1000 ML 1,000 ML IV ONE (11:34)
[2017-11-25 12:13] LABS: BUN/Creatinine Ratio 20; Blood Urea Nitrogen 14 mg/dL (7-17); Calcium 9.6 mg/dL (8.4-10.2); Hemolysis Index 10
--- NOTE | 2017-11-25 13:22 | Ultrasound Report ---
FINAL REPORT PROCEDURE: US OB > = 14 WEEKS FETUS TECHNIQUE: Real-time transabdominal sonography of the uterus, placenta, amniotic fluid, adnexa, and fetus was performed with image documentation. Measurements were obtained to determine age/size. M-mode Doppler was used to document heartbeat. CPT 02144 HISTORY: abdominal pain 14 weeks COMPARISON: No prior studies are available for comparison. FINDINGS: ADDITIONAL GESTATION: None. GENERAL: IUP: Single living intrauterine . Position: Breech Placental position: Posterior, Without previa. Amniotic fluid volume: Normal. MATERNAL: Uterus: Within normal limits. Cervical length: 4.1 cm. Internal Os: Closed. FETUS: Heart rate and rhythm: 144 beats per minute, regular MEASUREMENTS: BPD: 2.8 centimeters corresponding to 15 weeks and 0 days HC: 9.9 centimeters corresponding to 14 weeks and 4 days AC: 8.8 centimeters corresponding to 15 weeks and 0 days FL: 1.5 centimeters corresponding to 14 weeks and 3 days Mean Gestational Age (composite criteria): 14 weeks and 4 days Ratio biometry: Normal. Estimated Due Date: 05/21/2018 IMPRESSION: Single intrauterine gestation at 14 weeks and 4 days. Estimated due date: 05/21/2018.
[2017-11-25 13:53] LABS: Bacteria,Urine 1+ /HPF (Negative); Bilirubin,Urine NEG (Negative); Blood,Urine NEG (Negative); Color,Urine Yellow (Yellow); Mucus,Urine FEW /HPF; Urobilinogen,Urine < 2.0 mg/dL (<2.0)
[2017-11-25] MEDS ORDERED: PHENERGAN PO ONE (13:53)
[2017-11-25] MEDS ORDERED: D5NS 1,000 ML IV SCH (14:00)
[2017-11-25 16:12] VITALS: BP 107/62
== END 2017-11-25 16:20 | disposition home or self-care (01) ==
LOC: ED 10:23
DX: O23.42 Unspecified infection of urinary tract in pregnancy, second trimester (principal); O99.282 Endocrine, nutritional and metabolic diseases complicating pregnancy, second trimester; E86.0 Dehydration; E16.2 Hypoglycemia, unspecified; O26.892 Other specified pregnancy related conditions, second trimester; Z3A.22 22 weeks gestation of pregnancy
CPT/HCPCS: 36415; 76805; 80048; 81001; 82962; 84702; 84703; 93005; 93010; 96361; 96374; 96375; 99284; J2405; J2765; J7030; J7042; Q0169

== ENCOUNTER 2018-05-15 08:57 | Inpatient (IN) | payer OTHER ==
--- NOTE | 2018-04-23 10:59 | Ultrasound Report ---
FINAL REPORT PROCEDURE: Limited obstetrical ultrasound. TECHNIQUE: Real-time limited sonographic examination was performed for evaluation of size, pos ition, heartbeat, fluid volume for each fetus with image documentation (1 or more fetuses). CPT 7681 5 HISTORY: Pain on scar. COMPARISON: No prior studies are available for comparison. FINDINGS: There is a single intrauterine fetus in cephalic presentation. Cardiac activity is documented at 133 beats per minute. The placenta is located in the left lateral position, grade 1. The area of the prev ious Caesarean section scar was scanned. There is no free fluid or other abnormal mass identified. IMPRESSION: Viable intrauterine . No evidence of an abnormality at the previous Caesarean section scar.
--- NOTE | 2018-05-15 11:26 | History and Physical Report ---
History of Present Illness Date of admission: 05/15/18 08:57 Chief complaint: scheduled repeat section History of present illness: 22yo 39 3/7 weeks [place] 05/19/18 presents for scheduled repeat section. She reports good movement, no loss of fluid and no vaginal bleeding. She had late and limited care with [facility]. She had 3 visits this entire . Her prior was complicated by macrosomia 10lb 2oz. She declined diabetes screening this . Past History Past Medical History: no pertinent history Past Surgical History: section Social history: no significant social history - Obstetrical History : 2 Number of Living Children: 1 Medications and Allergies Allergies Allergy/AdvReac Type Severity Reaction Status Date / Time No Known Allergies Allergy Verified 04/21/18 17:52 Home Medications Medication Instructions Recorded Confirmed Last Taken Type Bacitracin Zinc Oint [Antibiotic 28.4 gm TP BID #1 oint...g. 01/05/17 Unknown Rx Oint] Acetaminophen [Acetaminophen TAB] 500 mg PO Q6HR PRN #20 tablet 09/17/17 Unknown Rx Nitrofurantoin Monohyd/M-Cryst 100 mg PO BID #14 capsule 09/17/17 Unknown Rx [Macrobid 100 mg Capsule] 21/Iron Fu/Folic Acid 1 each PO QDAY #30 tablet 09/17/17 Unknown Rx [ Complete Caplet] Doxylamine Succinate/Vit B6 1 each PO QHS PRN #30 tablet. 11/25/17 Unknown Rx [Shivam Alcantar 10-10 mg Tablet] cephALEXin [Keflex] 500 mg PO Q12H 7 Days #14 cap 11/25/17 Unknown Rx Ferrous Sulfate [Feosol 325 MG tab] 325 mg PO BID 30 Days #60 tablet 05/15/18 Unknown Rx Ibuprofen 800 mg PO Q6H PRN 10 Days #30 05/15/18 Unknown Rx tablet MDD 3200mg oxyCODONE /ACETAMINOPHEN [Percocet 1 tab PO Q4HR PRN 14 Days #30 tab 05/15/18 Unknown Rx 5/325] Active Meds: Active Medications Citric Acid/Sodium Citrate (Bicitra) 30 ml PO ONCE ONE Stop: 05/15/18 11:17 Famotidine (Pepcid) 20 mg IV ONCE ONE Stop: 05/15/18 11:17 Cefazolin Sodium (Ancef/Sterile Water 2 Gm/20 Ml) 2 gm in 20 mls @ 80 mls/hr IV PREOP NR; Protocol Lactated Ringer's (Lactated Ringers) 1,000 mls @ 2,250 mls/hr IV PREOP MIKAELA Stop: 05/16/18 12:27 Oxytocin/Sodium Chloride (Pitocin/Ns 20 Unit/1000ml Drip) 20 units in 1,000 mls @ 0 mls/hr IV TITR MIKAELA Metoclopramide HCl (Reglan) 10 mg IV ONCE ONE Stop: 05/15/18 11:17 - Obstetrical FHR: category 1 Results Result Diagrams: 05/15/18 11:40 All other labs normal. Assessment and Plan - Patient Problems (1) 39 weeks gestation of Current Visit: Yes Status: Acute Plan to address problem: Routine labs IVF Ancef 2g IV Obtain medical records from clinic Risks, benefits and alternatives to csection discussed and informed consent signed and in chart. (2) Previous section Current Visit: Yes Status: Acute
[2018-05-15] MEDS ORDERED: REGLAN IV NR (12:00)
[2018-05-15] MEDS ORDERED: BICITRA PO NR (12:00)
[2018-05-15] MEDS ORDERED: PITOCin/NS 20 UNIT/1000ML DRIP 20 UNITS/1,000 ML BAG IV SCH ×2 (12:00→19:00)
[2018-05-15] MEDS ORDERED: ANCEF/STERILE WATER 2 GM/20 ML 2 GM/20 ML SYRINGE IV NR (12:00)
[2018-05-15] MEDS ORDERED: PEPCID IV NR (12:00)
[2018-05-15 12:37] LABS: Basophils % (Auto) 0.3 % (0.0-1.8); Eosinophils # (Auto) 0.1 K/mm3 (0.0-0.4); Eosinophils % (Auto) 0.6 % (0.0-4.3); Hemoglobin 11.3 gm/dl (10.1-14.3); Lymphocytes # (Auto) 2.2 K/mm3 (1.2-5.4); Lymphocytes % (Auto) 27.3 % (13.4-35.0); Mean Corpuscular HGB Conc 32 % (30-34); Mean Corpuscular Volume 84 fl (79-97); Monocytes # (Auto) 0.7 K/mm3 (0.0-0.8); Monocytes % (Auto) 8.1 % (0.0-7.3); Platelet Count 214 K/mm3 (140-440); Red Blood Count 4.16 M/mm3 (3.65-5.03); Red Cell Distribution Width 15.7 % (13.2-15.2)
--- NOTE | 2018-05-15 13:05 | Anesthesia Consultation ---
Anesthesia Consult and Med Hx - Airway Anesthetic Teeth Evaluation: Good ROM Head & Neck: Adequate Mental/Hyoid Distance: Adequate Mallampati Class: Class I Intubation Access Assessment: Good - Pulmonary Exam CTA: Yes - Cardiac Exam Cardiac Exam: RRR - Pre-Operative Health Status ASA Pre-Surgery Classification: ASA2 Proposed Anesthetic Plan: Spinal - Pulmonary Hx Smoking: No Hx Asthma: No Hx Respiratory Symptoms: No SOB: No COPD: No Home Oxygen Therapy: No Hx Pneumonia: No - Cardiovascular System Hx Hypertension: No - Central Nervous System Hx Seizures: No Hx Psychiatric Problems: No - Endocrine Hx Renal Disease: No Hx End Stage Renal Disease: No Hx Hypothyroidism: No Hx Hyperthyroidism: No - Hematic Hx Anemia: No Hx Sickle Cell Disease: No - Other Systems Hx Alcohol Use: No
--- NOTE | 2018-05-15 13:06 | Anesthesia Day of Surgery ---
Anesthesia Day of Surgery - Day of Surgery Patient Examined: Yes Patient H&P Reviewed: Yes Patient is NPO: Yes Beta Blockers: No Cardiac Clearance: No Pulmonary Clearance: No Jon's Test: N/A
[2018-05-15] MEDS ORDERED: NARCAN 0.4 MG/1 ML IV PRN (13:30)
[2018-05-15] MEDS ORDERED: SODIUM CHLORIDE FLUSH SYRINGE 10 ML IV PRN (14:00)
[2018-05-15] MEDS ORDERED: PHENERGAN PO PRN (14:00)
[2018-05-15] MEDS ORDERED: PHENERGAN PR PRN (14:00)
[2018-05-15] MEDS ORDERED: XYLOCAINE 2%/ EPI 1:200,000 INFILTRATI ONE (16:07)
[2018-05-15] MEDS ORDERED: ASTRAMORPH PF 10MG/10ML ONE (16:11)
[2018-05-15] MEDS ORDERED: ZOFRAN ONE (16:11)
[2018-05-15] MEDS ORDERED: SENSORCAINE/DEXTR 0.75-8.25% INFILTRATI ONE (16:12)
[2018-05-15] MEDS ORDERED: NEO SYNEPHRINE/NS Syringe(OR USE) IV ONE (16:33)
[2018-05-15] MEDS ORDERED: NACL 0.9% IR ONE (16:46)
[2018-05-15] MEDS ORDERED: WATER FOR IRRIG STERILE IR ONE (16:56)
[2018-05-15] MEDS ORDERED: CYTOTEC ONE (17:03)
[2018-05-15] MEDS ORDERED: VERSED ONE ×2 (17:05→17:07)
[2018-05-15] MEDS ORDERED: DILAUDID ONE ×3 (17:08→18:14)
[2018-05-15] MEDS ORDERED: CYTOTEC PR ONE (17:10)
[2018-05-15] MEDS ORDERED: METHERGINE IM ONE (17:11)
[2018-05-15] MEDS ORDERED: MORPHINE IV PRN (18:24)
[2018-05-15] MEDS ORDERED: TUCKS PAD TP PRN (18:24)
[2018-05-15] MEDS ORDERED: MYLICON PO PRN (18:24)
[2018-05-15] MEDS ORDERED: MILK OF MAGNESIA PO PRN (18:24)
[2018-05-15] MEDS ORDERED: LANSINOH TP PRN (18:24)
[2018-05-15] MEDS ORDERED: TYLENOL PO PRN (18:24)
--- NOTE | 2018-05-15 18:52 | Operative Report ---
Operative Report Operative Report: PREOP Diagnosis 1. 39 3/7 weeks gestation 2. Previous section 3. History of macrosomia Postop Diagnosis 1. 39 3/7 weeks gestation 2. Previous section 3. macrosomia 4. Uterine atony Procedure: Repeat low-transverse section Findings 1. Viable male in the vertex position, weighing 9lb 15 oz, 4455g APGARS 8 at 1 min, 9 at 5 min 2. Normal uterus bilateral ovaries and tubes Surgeon 1. Negar Laguerre MD Anesthesia: 1. Epidural I/O: EBL: 1500ml UOP: 200ml, clear urine IVF 2300ml LR Specimens removed: 1. Placenta Complications: none Disposition: Patient taken to recovery room in stable condition INDICATIONS: The patient is a 22yo at 39 3/7 weeks that presented for scheduled repeat section. The patient was consented and the risks including but not limited to bleeding, infections, injury to surrounding organs, potential injury to mother/infant were discussed. All questions were answered and informed consent signed. PROCEDURE: The patient was taken to the OR in stable condition. Adequate anesthesia was achieved with epidural anesthesia. A hernandez catheter was placed. She wore SCDs for DVT prophylaxis. And received Ancef for infection prophylaxis. The patient was prepped and draped in the usual fashion and an additional time out was done. A Pfannestiel incision was made over the previous uterine scar. The fascia was incised and the incision extended laterally. The superior and inferior aspect of the rectus muscle was dissected off of the fascia. Entry into the peritoneum was achieved. The incision was extended caudally. A bladder blade was placed and the vesicouterine peritoneum was dissected off the lower uterine segment. An Brennon-O retractor was then placed. A low-transverse incision made made in the uterus and extended laterally. membranes were ruptured and noted to be clear. The head was brought to the hysterotomy and mouth bulb suctioned. The body was delivered. The cord was clamped x 2, cut and handed off to awaiting sports medicine specialist staff. The placenta was delivered intact and 20 units of IV Pitocin were added to LR fluids. The uterus was noted to be boggy and an Methergine 0.2mg IM was administered. The uterus was cleaned of all clots. The uterus was repaired with 0-Vicryl in a running, locked stitch and an imbricating layer of the same suture was used. The left aspect of the incision had a extension of the uterine serosa and was repaired with 2-0 Vicryl. The subcutaneous and rectus muscle was reapproximated with 2-0Vicryl. The fascia was closed with 0 Vicryl. The Subcutaneous layer reapproximated with 2-0 Vicryl and the skin closed with 4-0 Vicryl. The patient tolerated the procedure well. All counts were correct x 3. Urine was noted to be clear at close of case. I was present and scrubbed for the entire procedure. The patient was taken to the recovery room in stable condition.
[2018-05-15] MEDS: LACTATED RINGERS 1,000 ML IV SCH (19:19)
[2018-05-15] MEDS ORDERED: BENADRYL IV ONE (19:42)
[2018-05-15] MEDS: NUBAIN IV PRN (20:38)
[2018-05-15 20:46] LABS: Hematocrit 30.8 % (30.3-42.9); Hemoglobin 9.9 gm/dl (10.1-14.3)
[2018-05-16] MEDS: ZOFRAN IV PRN ×2 (00:14→12:44)
[2018-05-16] MEDS: LACTATED RINGERS 1,000 ML IV SCH (00:22)
[2018-05-16] MEDS: NUBAIN IV PRN (04:43)
[2018-05-16 06:24] LABS: Hemoglobin 8.8 gm/dl (10.1-14.3)
[2018-05-16] MEDS: IBUPROFEN PO PRN ×3 (06:25→19:07)
[2018-05-16] MEDS: PERCOCET 5/325 PO PRN ×3 (06:25→19:07)
[2018-05-16] MEDS: FEOSOL PO SCH (10:23)
--- NOTE | 2018-05-16 10:36 | Progress Note ---
Assessment and Plan - Patient Problems (1) S/P repeat low transverse Current Visit: Yes Status: Acute Plan to address problem: POD 1 - stable Continue routine postop orders Ambulation encouraged, prn Abdominal binder ordered Anticipate discharge in 24 - 48 hours (2) Anemia due to blood loss, acute Current Visit: Yes Status: Acute Plan to address problem: Asymptomatic Continue iron therapy: Ferrous sulfate 325mg PO QDAY (3) Pruritus Current Visit: Yes Status: Acute Plan to address problem: Benadryl 25mg PO q6hr PRN ordered Subjective - Subjective Date of service: 05/16/18 Principal diagnosis: POD #1; s/p Repeat LTCS Interval history: See H&P and Operative Report Patient reports: appetite normal, voiding normally, pain well controlled, ambulating normally, other (reports generalized itching), no dizzy ambulation, no flatus, no bowel movement : doing well, bottle feeding Objective - Vital Signs Latest vital signs: Vital Signs Temp Pulse Resp BP Pulse Ox 05/16/18 07:50 97.4 F L 94 H 20 104/60 98 05/16/18 05:35 97.9 F 90 20 107/70 99 05/16/18 01:10 97.1 F L 89 18 117/79 100 05/15/18 20:57 97.4 F L 71 16 123/77 100 05/15/18 20:25 96.8 F L 91 H 146 H 113/83 100 05/15/18 20:20 95.1 F L 91 H 20 109/74 100 05/15/18 20:05 75 16 108/86 99 05/15/18 19:50 86 14 107/74 99 05/15/18 19:35 70 12 113/67 99 05/15/18 19:20 74 10 L 98/43 100 05/15/18 19:05 96 H 20 109/49 98 05/15/18 18:45 69 14 112/59 100 05/15/18 18:30 73 16 108/59 100 05/15/18 18:25 69 14 110/62 100 05/15/18 18:20 97.8 F 69 14 110/62 100 Intake and Output 05/15/18 05/16/18 05/16/18 23:59 07:59 15:59 Intake Total 2550 1111.25 Output Total 500 2450 Balance 2050 -1338.75 Intake: IV 2500 631.25 Lactated Ringers 1,000 ml 631.25 @ 2250 mls/hr IV PREOP [facility] Rx#:[id number] Intake, Free Water 50 480 Output: Urine 500 2450 Indwelling Catheter 2450 Other: Total, Output Amount 1600 Estimated Blood Loss 1,500 - Exam Lungs: Present: Clear to auscultation, Normal air movement Abdomen: Present: normal appearance, soft Vulva: both: normal Uterus: Present: normal, firm, fundal height below umbilicus Extremities: Present: normal Incision: Present: normal, dry, intact, dressed Comments: scant lochia - Labs Labs: Abnormal lab results 05/15/18 05/15/18 05/16/18 Range/Units 11:40 20:17 05:59 Hgb 9.9 L 8.8 L (10.1-14.3) gm/dl Hct 27.0 L (30.3-42.9) % MCH 27 L (28-32) pg RDW 15.7 H (13.2-15.2) % [place] % (Auto) 8.1 H (0.0-7.3) %
[2018-05-16] MEDS ORDERED: BENADRYL PO PRN (11:00)
[2018-05-17] MEDS: IBUPROFEN PO PRN ×3 (00:40→13:51)
[2018-05-17] MEDS: PERCOCET 5/325 PO PRN ×3 (00:40→13:51)
[2018-05-17] MEDS: FEOSOL PO SCH (09:50)
--- NOTE | 2018-05-17 10:44 | Progress Note ---
Assessment and Plan - Patient Problems (1) S/P repeat low transverse Current Visit: Yes Status: Acute Plan to address problem: POD 2 - stable Continue routine postop orders Ambulation encouraged, prn Anticipate discharge today (2) Anemia due to blood loss, acute Current Visit: Yes Status: Acute Plan to address problem: Asymptomatic Continue iron therapy: Ferrous sulfate 325mg PO QDAY Subjective - Subjective Date of service: 05/17/18 Principal diagnosis: POD #2; s/p Repeat LTCS Patient reports: appetite normal, voiding normally, pain well controlled, flatus, ambulating normally, no bowel movement [place]: doing well, bottle feeding Objective - Vital Signs Latest vital signs: Vital Signs Temp Pulse Resp BP BP Pulse Ox 05/17/18 08:25 98.2 F 68 20 108/64 05/17/18 00:24 97.8 F 82 18 97/54 99 05/16/18 15:24 97.9 F 92 H 18 100/64 97 05/16/18 12:37 97.9 F 80 20 98/57 100 Intake and Output 05/16/18 05/17/18 05/17/18 23:59 07:59 15:59 Intake Total 1200 360 120 Balance 1200 360 120 Intake: Oral 480 360 120 Intake, Free Water 720 Other: Total, Intake Amount 480 360 120 # Voids Indwelling Catheter 2 1 - Exam Breasts: Present: normal Cardiovascular: Present: Regular rate, Normal S1, Normal S2, No murmurs Lungs: Present: Clear to auscultation, Normal air movement Abdomen: Present: normal appearance, soft, tenderness (as expected), normal bowel sounds. Absent: distention Vulva: both: normal Uterus: Present: firm, fundal height below umbilicus (-1) Extremities: Present: normal Incision: Present: normal, dry, intact, dressed (Pressure dressing intact)
--- NOTE | 2018-05-17 10:45 | Discharge Summary ---
< - Last Filed: 05/17/18 10:44> Providers - Providers Date of Admission: 05/15/18 08:57 Date of discharge: 05/17/18 Attending physician: LD CEDEÑO Primary care physician: LD CEDEÑO Hospitalization Reason for admission: section, IUP at term Procedure: repeat low transverse Procedure details: See H&P and operative note Other procedures: none complications: none Discharge diagnosis: IUP at term delivered [place] baby: male Condition at discharge: Good Disposition: DC-01 TO HOME OR SELFCARE Plan - Discharge Medications Prescriptions: RX: Ferrous Sulfate [Feosol 325 MG tab] 325 mg PO BID 30 Days #60 tablet RX: Ibuprofen 800 mg PO Q6H PRN 10 Days #30 tablet MDD 3200mg PRN Reason: Pain, Moderate (4-6) oxyCODONE /ACETAMINOPHEN [Percocet 5/325] 1 tab PO Q4HR PRN 14 Days #30 tab PRN Reason: Pain , Severe (7-10) - Provider Discharge Summary Activity: routine, no sex for 6 weeks, no heavy lifting 4 weeks, no strenuous exercise Diet: routine Instructions: routine Additional instructions: [] Smoking cessation referral if applicable(refer to patient education folder for contact #) [] Refer to [facility]'s [facility] Booklet Call your doctor immediately for: * Fever > 100.5 * Heavy vaginal bleeding ( >1 pad per hour) * Severe persistent headache * Shortness of breath * Reddened, hot, painful area to leg or breast * Drainage or odor from incision. * Keep incision clean and dry at all times and follow doctor's instructions regarding bathing/showering - Follow up plan Follow up: LD CEDEÑO [Primary Care Provider] - 7 Days Forms: [facility] Discharge Summary <LD CEDEÑO - Last Filed: 05/18/18 08:41> Providers - Providers Date of Admission: 05/15/18 08:57 Attending physician: LD CEDEÑO Primary care physician: LD CEDEÑO Hospitalization - Discharge Diagnoses (1) 39 weeks gestation of Status: Acute (2) Previous section Status: Acute (3) macrosomia Status: Acute (4) Anemia due to blood loss, acute Status: Acute Comment: Stable. Asymptomatic. Discharge home on supplemental iron. Plan - Provider Discharge Summary Additional instructions: [] Smoking cessation referral if applicable(refer to patient education folder for contact #) [] Refer to [facility]'s [facility] Booklet Call your doctor immediately for: * Fever > 100.5 * Heavy vaginal bleeding ( >1 pad per hour) * Severe persistent headache * Shortness of breath * Reddened, hot, painful area to leg or breast * Drainage or odor from incision. * Keep incision clean and dry at all times and follow doctor's instructions regarding bathing/showering
[2018-05-17 16:32] VITALS: BP 115/66
== END 2018-05-17 17:45 | disposition home or self-care (01) | DRG 787 ==
LOC: APU 08:57 → OB 20:48
PROVIDERS: ADMIT Obstetrics & Gynecology; ATTEND Obstetrics & Gynecology
PROC: 10D00Z1 Extraction of Products of Conception, Low, Open Approach (ICD-10-PCS; principal; 2018-05-15)
DX: O34.211 Maternal care for low transverse scar from previous cesarean delivery (principal); D62 Acute posthemorrhagic anemia; N85.8 Other specified noninflammatory disorders of uterus; O36.63X0 Maternal care for excessive fetal growth, third trimester, not applicable or unspecified; Z3A.39 39 weeks gestation of pregnancy; Z37.0 Single live birth; O62.2 Other uterine inertia; O99.02 Anemia complicating childbirth
CPT/HCPCS: 36415; 76815; 83036; 85014; 85018; 85025; 86850; 86900; 86901; G0378; J0690; J1170; J1200; J2250; J2274; J2300; J2370; J2405; J2590; J2765; J7120

== ENCOUNTER 2018-11-29 20:26 | Emergency (ER) | payer OTHER ==
[2018-11-29 21:14] VITALS: BP 100/71
--- NOTE | 2018-11-29 21:22 | Emergency Department Report ---
[facility] Chief Complaint: Eye Problems Stated Complaint: BILATERAL PINK EYES Time Seen by Provider: 11/29/18 21:15 Duration: 1 Day Side: Right Severity: mild Symptoms: Yes Eye Itching, Yes Eye Redness, No Mucous Drainage, No Purulent Drainage, No Blurred Vision, No Preceding URI, No H/O Allergic Rhinitis, No Contact Lens Use, No Trauma, No Fever, No Headache Other History: 22-year-old female that presents with right eye redness and itching with crusting. Stated that her daugther has symptoms first and now she has them. Denies any pain. Denies any headache, nausea, vomiting, chest pain, shortness of breathe. Denies any allergies. ED Review of Systems ROS: Stated complaint: BILATERAL PINK EYES Other details as noted in HPI Constitutional: denies: chills, fever Eyes: denies: eye pain, eye discharge, vision change ENT: denies: ear pain, throat pain Respiratory: denies: cough, shortness of breath, wheezing Cardiovascular: denies: chest pain, palpitations Endocrine: no symptoms reported Gastrointestinal: denies: abdominal pain, nausea, diarrhea Genitourinary: denies: urgency, dysuria, discharge Musculoskeletal: denies: back pain, joint swelling, arthralgia Skin: denies: rash, lesions Neurological: denies: headache, weakness, paresthesias Psychiatric: denies: anxiety, depression Hematological/Lymphatic: denies: easy bleeding, easy bruising ED Past Medical Hx - Past Medical History Previous Medical History?: No Hx Hypertension: No Hx Congestive Heart Failure: No Hx Diabetes: No Hx Deep Vein Thrombosis: No Hx Renal Disease: No Hx Sickle Cell Disease: No Hx Seizures: No Hx Asthma: No Hx COPD: No Hx HIV: No - Surgical History Past Surgical History?: Yes Additional Surgical History: X 2 - Social History Smoking Status: Never Smoker Substance Use Type: None - Medications Home Medications: Home Medications Medication Instructions Recorded Confirmed Last Taken Type 21/Iron Fu/Folic Acid 1 each PO QDAY #30 tablet 09/17/17 05/16/18 2 Months Ago Rx [ Complete Caplet] ~03/15/18 Ferrous Sulfate [Feosol 325 MG tab] 325 mg PO BID 30 Days #60 tablet 05/15/18 Unknown Rx Ibuprofen [Ibuprofen 800] 800 mg PO Q6H PRN 10 Days #30 05/15/18 Unknown Rx tablet MDD 3200mg oxyCODONE /ACETAMINOPHEN [Percocet 1 tab PO Q4HR PRN 14 Days #30 tab 05/15/18 Unknown Rx 5/325] Polymyxin B Sulf/Trimethoprim 2 drops OD BID #1 drops 11/29/18 Unknown Rx [Polytrim Eye Drops] [facility] Exam - Exam General: Vital signs noted. No distress. Alert and acting appropriately. Eye Exam: Neither Injection, Neither Chemosis, Neither Abnormal Pupil, Neither EOMI, Neither Eye Foreign Body, Neither Lid Foreign Body, Neither Mucous Discharge, Neither Purulent Discharge, Neither Fluorescein Uptake, Neither Fluorescein Uptake (slit lamp), Neither Cell/Flare (slit lamp), Neither Corneal Edema, Neither Photophobia HEENT: No Nasal Congestion, No Pharyngeal Erythema Remainder of HEENT: Normal ED Course Vital Signs 11/29/18 21:10 Temperature 98.7 F Pulse Rate 69 Respiratory 16 Rate Blood Pressure 100/71 O2 Sat by Pulse 98 Oximetry - Reevaluation(s) Reevaluation #1: 11/29/18 21:20 Patient is speaking in full sentences with no signs of distress noted. ED Medical Decision Making - Medical Decision Making Patient was instructed to Follow-up with a primary care doctor in 3-5 days or if symptoms worsen and continue return to emergency room as soon as possible. At time of discharge, the patient does not seem toxic or ill in appearance. No acute signs of distress noted. Patient agrees to discharge treatment plan of care. No further questions noted by the patient. Critical care attestation.: If time is entered above; I have spent that time in minutes in the direct care of this critically ill patient, excluding procedure time. ED Disposition Clinical Impression: Conjunctivitis, right eye Qualifiers: Conjunctivitis type: acute Acute conjunctivitis type: bacterial Qualified Code(s): H10.31 - Unspecified acute conjunctivitis, right eye Disposition: DC- TO HOME OR SELFCARE Is pt being admited?: No Does the pt Need Aspirin: No Condition: Stable Instructions: Conjunctivitis (ED) Additional Instructions: Follow-up with a primary care doctor in 3-5 days or if symptoms worsen and continue return to emergency room as soon as possible. Prescriptions: Polymyxin B Sulf/Trimethoprim [Polytrim Eye Drops] 2 drops OD BID #1 drops Referrals: PRIMARY CARE, [Referring] - 3-5 Days MILEY SAUCDEA MD [Staff Physician] - 3-5 Days [facility] [Outside] - 3-5 Days [facility] [Outside] - 3-5 Days Forms: Work/School Release Form(ED)
== END 2018-11-29 21:30 | disposition home or self-care (01) ==
LOC: ED 20:26
DX: H10.31 Unspecified acute conjunctivitis, right eye (principal)
CPT/HCPCS: 99282

== ENCOUNTER 2019-08-25 11:48 | Observation (INO) | payer OTHER ==
[2019-08-25] MEDS ORDERED: LACTATED RINGERS 1,000 ML IV ONE (14:53)
[2019-08-25 16:08] LABS: Basophils % (Auto) 0.4 % (0.0-1.8); Eosinophils # (Auto) 0.1 K/mm3 (0.0-0.4); Eosinophils % (Auto) 0.8 % (0.0-4.3); Hematocrit 30.9 % (30.3-42.9); Hemoglobin 9.7 gm/dl (10.1-14.3); Lymphocytes % (Auto) 23.8 % (13.4-35.0); Mean Corpuscular HGB Conc 31 % (30-34); Mean Corpuscular Volume 81 fl (79-97); Monocytes # (Auto) 0.9 K/mm3 (0.0-0.8); Monocytes % (Auto) 11.2 % (0.0-7.3); Platelet Count 207 K/mm3 (140-440); Red Blood Count 3.83 M/mm3 (3.65-5.03); Red Cell Distribution Width 16.5 % (13.2-15.2)
--- NOTE | 2019-08-25 16:08 | Ultrasound Report ---
Limited OB ultrasound for biophysical profile FINDINGS: Single fetus is identified in vertex presentation. KEL is normal at 15 cm. Placenta is fund al and free of the os. No abruption or hemorrhage. heart rate is 142 bpm. breathing movem ent, spontaneous motion, tone and qualitative KEL all score 2/2 for a total of 8/8. Signer Name: Demetrius Casillas MD Signed: 08/25/2019 4:03 PM Workstation Name: [id number]
[2019-08-25] MEDS: LACTATED RINGERS 1,000 ML IV SCH ×2 (16:11→19:08)
--- NOTE | 2019-08-25 17:19 | History and Physical Report ---
History of Present Illness Date of examination: 08/25/19 Date of admission: 08/25/2019 Chief complaint: 08/25/2019 History of present illness: This H&P was put in as a courtesy to . Dr. Cárdenas is managing this patient's care due to gestation and pelvic pain. Nurses notified to call Dr. Cárdenas for all questions and orders related to this patient. Patient informed that MD will be managing her care. 23 year old presents to L&D with complaint of pelvic pain. Patient states she has been having pain for several weeks, worsening last night. Patient denies vaginal bleeding or leaking of fluid. Patient reports active movement. She denies falls or abdominal trauma. Patient received care at [facility] and records are not available. Was able to look patient up on computer and obtain labs and EDC. LMP 12/25/2018. EDC 10/01/2019. EGA 34 weeks, 5 day gestation. significant for the following: chlamydia (treated and MADELINE negative), hyperemesis gravidarum, history of 2 previous sections. labs are as follows: A+, antibody screen negative, rubella immune, hepatitis B surface antigen negative, RPR nonreactive, HIV negative, gonorrhea negative/negative, chlamydia positive/negative, varicella immune, hemoglobin electrophoresis AA, HSV 2 negative, negative AFP. Past History Past Medical History: no pertinent history Past Surgical History: section (times 2) VACCINE MANAGER History: chlamydia (treated and cured during this ) Family/Genetic History: diabetes, cancer, other (chronic kidney disease) Social history: single, full code. denies: smoking, alcohol abuse, prescription drug abuse, IV drug use - Obstetrical History Expected Date of Delivery: 10/01/19 Actual Gestation: 34 Week(s) 5 Day(s) : 3 Para: 2 Hx # Term Pregnancies: 2 Number of Pregnancies: 0 Spontaneous Abortions: 0 Induced : 0 Number of Living Children: 2 Medications and Allergies Allergies Allergy/AdvReac Type Severity Reaction Status Date / Time No Known Allergies Allergy Verified 04/21/18 17:52 Home Medications Medication Instructions Recorded Confirmed Last Taken Type 21/Iron Fu/Folic Acid 1 each PO QDAY #30 tablet 09/17/17 05/16/18 2 Months Ago Rx [ Complete Caplet] ~03/15/18 Ferrous Sulfate [Feosol 325 MG tab] 325 mg PO BID 30 Days #60 tablet 05/15/18 Unknown Rx Ibuprofen [Ibuprofen 800] 800 mg PO Q6H PRN 10 Days #30 05/15/18 Unknown Rx tablet MDD 3200mg oxyCODONE /ACETAMINOPHEN [Percocet 1 tab PO Q4HR PRN 14 Days #30 tab 05/15/18 Unknown Rx 5/325] Polymyxin B Sulf/Trimethoprim 2 drops OD BID #1 drops 11/29/18 Unknown Rx [Polytrim Eye Drops] Active Meds: Active Medications Lactated Ringer's (Lactated Ringers) 1,000 mls @ 125 mls/hr IV DIRECT MIKAELA Last Admin: 08/25/19 16:11 Dose: 125 mls/hr Documented by: Multivitamins/Iron/Calcium ( Vitamin) 1 each PO QDAY MIKAELA Review of Systems All systems: negative (pelvic pain) - Vital Signs Vital signs: Vital Signs Pulse Pulse Ox 118 H 97 08/25/19 12:13 08/25/19 12:13 Temp Pulse Resp BP Pulse Ox 97.7 F 84 20 111/61 97 08/25/19 16:13 08/25/19 17:02 08/25/19 16:13 08/25/19 16:07 08/25/19 17:02 - Physical Exam Abdomen: Positive: normal appearance, soft. Negative: distention, tenderness, guarding, rigidity Genitourinary (Female): Positive: normal external genitalia, normal perenium. Negative: perineal/vulvar lesions Vagina: Positive: normal moisture Uterus: Positive: enlarged. Negative: tender Anus/Rectum: Positive: normal perianal skin Extremities: Positive: normal. Negative: tenderness, edema - Obstetrical Cervical Dilatation: 0 Cervical Effacement Percentage: 10 station: -4 Uterine Contraction Pattern: Irregular Uterine Contraction Intensity: Mild Results Result Diagrams: 08/25/19 15:28 Abnormal lab results 08/25/19 Range/Units 15:28 Hgb 9.7 L (10.1-14.3) gm/dl MCH 25 L (28-32) pg RDW 16.5 H (13.2-15.2) % [place] % (Auto) 11.2 H (0.0-7.3) % [place] # 0.9 H (0.0-0.8) K/mm3 All other labs normal. Assessment and Plan A: at 34 weeks, 5 days gestation. Pelvic pain. Previous section times 2. R/O labor. P: Per orders of Dr. Cárdenas: Admit patient for 23 hour observation, obtain US, IV hydration, continuous EFM. Adivsed patient re: orders and POC outlined by Dr. Cárdenas. Informed Dr. Cárdenas re: all of patient's complaints and results of my physical exam. All managment of patient is by Dr. Cárdenas.
[2019-08-25] MEDS ORDERED: TERBUTALINE 1 MG/1 ML INJ ONE (18:58)
[2019-08-25] MEDS ORDERED: TERBUTALINE 1 MG/1 ML INJ SUB-Q ONE ×2 (19:00→19:30)
[2019-08-25 22:11] LABS: Bilirubin,Urine NEG (Negative); Blood,Urine NEG (Negative); Color,Urine Straw (Yellow); Mucus,Urine FEW /HPF; Protein,Urine <15 mg/dL mg/dL (Negative); Urobilinogen,Urine < 2.0 mg/dL (<2.0); WBC,Urine < 1.0 /HPF (0.0-6.0)
[2019-08-25] MEDS ORDERED: FAMOTIDINE 20 MG/2 ML INJ IV ONE (22:12)
[2019-08-25 22:26] LABS: Amphetamine Screen,Urine PRESUMPTIVE NEGATIVE; Benzodiazepines Screen,Urine PRESUMPTIVE NEGATIVE; Cannabinoid Screen,Urine PRESUMPTIVE NEGATIVE; Cocaine Screen,Urine PRESUMPTIVE NEGATIVE; Methadone Screen,Urine PRESUMPTIVE NEGATIVE; Opiate Screen,Urine PRESUMPTIVE NEGATIVE
[2019-08-25] MEDS ORDERED: ACETAMINOPHEN 325 MG TAB PO PRN (22:28)
[2019-08-25] MEDS ORDERED: ZOLPIDEM 5 MG TAB PO PRN (22:30)
[2019-08-26] MEDS: LACTATED RINGERS 1,000 ML IV SCH (04:22)
[2019-08-26 04:25] VITALS: BP 108/59
--- NOTE | 2019-08-26 07:44 | Progress Note ---
Subjective - Subjective Date of service: 08/26/19 Interval history: pelvic pain: resolved no cervical change maternal/ well being reassuring plan for d/c to home with [facility] in one week Keith Segovia MD Objective - Vital Signs Vital Signs: Vital Signs - 12hr 08/25/19 08/25/19 08/25/19 19:45 19:50 19:55 Temperature Pulse Rate 91 H 98 H 123 H Respiratory Rate Blood Pressure Blood Pressure [Left] O2 Sat by Pulse 100 100 99 Oximetry 08/25/19 08/25/19 08/25/19 20:00 20:05 20:10 Temperature 97.9 F Pulse Rate 124 H 110 H 118 H Respiratory 18 Rate Blood Pressure Blood Pressure [Left] O2 Sat by Pulse 99 100 100 Oximetry 08/25/19 08/25/19 08/25/19 20:15 20:23 20:24 Temperature Pulse Rate 108 H 118 H 121 H Respiratory Rate Blood Pressure 101/57 Blood Pressure [Left] O2 Sat by Pulse 99 100 Oximetry 08/25/19 08/25/19 08/25/19 20:28 20:33 20:38 Temperature Pulse Rate 109 H 107 H 114 H Respiratory Rate Blood Pressure Blood Pressure [Left] O2 Sat by Pulse 100 100 100 Oximetry 08/25/19 08/25/19 08/25/19 20:43 20:48 20:53 Temperature Pulse Rate 112 H 136 H 140 H Respiratory Rate Blood Pressure Blood Pressure [Left] O2 Sat by Pulse 100 100 100 Oximetry 08/25/19 08/25/19 08/25/19 20:58 21:03 21:08 Temperature Pulse Rate 141 H 118 H 114 H Respiratory Rate Blood Pressure Blood Pressure [Left] O2 Sat by Pulse 100 100 100 Oximetry 08/25/19 08/25/19 08/25/19 21:13 21:18 21:23 Temperature Pulse Rate 116 H 117 H 114 H Respiratory Rate Blood Pressure Blood Pressure [Left] O2 Sat by Pulse 100 100 98 Oximetry 08/25/19 08/25/19 08/25/19 21:28 21:33 21:35 Temperature Pulse Rate 103 H 118 H 208 H Respiratory Rate Blood Pressure Blood Pressure [Left] O2 Sat by Pulse 99 99 82 L Oximetry 08/25/19 08/25/19 08/25/19 23:18 23:40 23:49 Temperature Pulse Rate 40 L 111 H Respiratory Rate Blood Pressure 100/55 Blood Pressure [Left] O2 Sat by Pulse 79 L 85 Oximetry 08/25/19 08/25/19 08/26/19 23:50 23:59 04:22 Temperature 97.7 F Pulse Rate 70 109 H Respiratory Rate Blood Pressure 94/52 Blood Pressure [Left] O2 Sat by Pulse 89 100 Oximetry 08/26/19 08/26/19 04:23 04:24 Temperature 98.1 F Pulse Rate 96 H 96 H Respiratory Rate Blood Pressure 108/59 Blood Pressure 108/59 [Left] O2 Sat by Pulse Oximetry - Labs Labs: Abnormal Labs 08/25/19 15:28 Hgb 9.7 L MCH 25 L RDW 16.5 H [place] % (Auto) 11.2 H [place] # 0.9 H Laboratory Results - last 24 hr 08/25/19 08/25/19 08/25/19 15:28 15:28 22:00 WBC 8.3 RBC 3.83 Hgb 9.7 L Hct 30.9 MCV 81 MCH 25 L MCHC 31 RDW 16.5 H Plt Count 207 Lymph % (Auto) 23.8 [place] % (Auto) 11.2 H Eos % (Auto) 0.8 Baso % (Auto) 0.4 Lymph # 2.0 Cook # 0.9 H Eos # 0.1 Baso # 0.0 Seg Neutrophils % 63.8 Seg Neutrophils # 5.3 Urine Color Straw Urine Turbidity Clear Urine pH 7.0 Ur Specific Frakes 1.006 Urine Protein <15 mg/dl Urine Glucose (UA) Neg Urine Ketones 80 Urine Blood Neg Urine Nitrite Neg Urine Bilirubin Neg Urine Urobilinogen < 2.0 Ur Leukocyte Esterase Neg Urine WBC (Auto) < 1.0 Urine RBC (Auto) 1.0 U Epithel Cells (Auto) 1.0 Urine Mucus Few Urine Opiates Screen Urine Methadone Screen Ur Barbiturates Screen Ur Phencyclidine Scrn Ur Amphetamines Screen U Benzodiazepines Scrn Urine Cocaine Screen U Marijuana (THC) Screen Drugs of Abuse Note Blood Type A POSITIVE Antibody Screen Negative 08/25/19 22:00 WBC RBC Hgb Hct MCV MCH MCHC RDW Plt Count Lymph % (Auto) [place] % (Auto) Eos % (Auto) Baso % (Auto) Lymph # Cook # Eos # Baso # Seg Neutrophils % Seg Neutrophils # Urine Color Urine Turbidity Urine pH Ur Specific Frakes Urine Protein Urine Glucose (UA) Urine Ketones Urine Blood Urine Nitrite Urine Bilirubin Urine Urobilinogen Ur Leukocyte Esterase Urine WBC (Auto) Urine RBC (Auto) U Epithel Cells (Auto) Urine Mucus Urine Opiates Screen Presumptive negative Urine Methadone Screen Presumptive negative Ur Barbiturates Screen Presumptive negative Ur Phencyclidine Scrn Presumptive negative Ur Amphetamines Screen Presumptive negative U Benzodiazepines Scrn Presumptive negative Urine Cocaine Screen Presumptive negative U Marijuana (THC) Screen Presumptive negative Drugs of Abuse Note Disclamer Blood Type Antibody Screen
[2019-08-26] MEDS ORDERED: PRENATAL VIT27-FE FUMARATE-FOLIC ACID VIT TAB PO SCH (10:00)
== END 2019-08-26 08:38 | disposition home or self-care (01) ==
LOC: TRG 11:48 → LD 11:49 → APU 11:50 → TRG 17:20
PROVIDERS: ADMIT Obstetrics & Gynecology; ATTEND Obstetrics & Gynecology
DX: O26.893 Other specified pregnancy related conditions, third trimester (principal); R10.2 Pelvic and perineal pain; O34.219 Maternal care for unspecified type scar from previous cesarean delivery; Z3A.34 34 weeks gestation of pregnancy
CPT/HCPCS: 36415; 76815; 76819; 80307; 81001; 85025; 86850; 86900; 86901; 96372; 96374; G0378; J3105; J7120

== ENCOUNTER 2020-06-06 10:15 | Emergency (ER) | payer OTHER, MEDICAID ==
--- NOTE | 2020-06-06 10:35 | Emergency Department Report ---
ED Female HPI - General Chief complaint: Back Pain/Injury Stated complaint: NECK PAIN, BACK PAIN, POSSIBLE UTI Source: patient Mode of arrival: Ambulatory Limitations: No Limitations - History of Present Illness Initial comments: 24-year-old asthmatic female presents emerge department complaining of a long history of chronic recurrent back pain which she thinks is secondary to repeated urinary tract infections over the past 2 to 3 years. She presents emerge department today complaining of having some dysuria having some increased urinary urgency and and vague discomfort on urination but no vaginal bleeding, no hematuria no vaginal discharge no fever, chills, sweats. She reports no chest pain no palpitation reports no known injury but she does work in a warehouse lifting pushing pulling boxes and thinks that may have caused some discomfort to her neck. No numbness or tingling to the upper extremity. No issues swallowing no no voice change no fever, chills, sweats MD Complaint: dysuria -: Gradual (`) Consistency: constant Worsens with: none Are you Now?: No - Related Data Previous Rx's Medication Instructions Recorded Last Taken Type HYDROcodone/APAP 5-325 [[place] 1 - 2 each PO Q6HR PRN #30 tablet 09/30/19 Unknown Rx 5/325] Phenazopyridine [Pyridium] 200 mg PO TID #10 tab 06/06/20 Unknown Rx Allergies Allergy/AdvReac Type Severity Reaction Status Date / Time No Known Allergies Allergy Verified 04/21/18 17:52 ED Review of Systems ROS: Stated complaint: NECK PAIN, BACK PAIN, POSSIBLE UTI Other details as noted in HPI Comment: All other systems reviewed and negative ED Past Medical Hx - Past Medical History Previous Medical History?: Yes Hx Hypertension: No Hx Congestive Heart Failure: No Hx Diabetes: No Hx Deep Vein Thrombosis: No Hx Renal Disease: No Hx Sickle Cell Disease: No Hx Seizures: No Hx Asthma: No Hx COPD: No Hx HIV: No Additional medical history: Childbirth x 3 - Surgical History Additional Surgical History: X 3 - Social History Smoking Status: Current Every Day Smoker Substance Use Type: Marijuana - Medications Home Medications: Home Medications Medication Instructions Recorded Confirmed Last Taken Type HYDROcodone/APAP 5-325 [[place] 1 - 2 each PO Q6HR PRN #30 tablet 09/30/19 Unknown Rx 5/325] Phenazopyridine [Pyridium] 200 mg PO TID #10 tab 06/06/20 Unknown Rx ED Physical Exam - General Limitations: No Limitations General appearance: alert, in no apparent distress - Head Head exam: Present: atraumatic, normocephalic - Eye Eye exam: Present: normal appearance, PERRL Pupils: Present: normal accommodation - ENT ENT exam: Present: normal exam, normal orophraynx, mucous membranes moist - Neck Neck exam: Present: normal inspection, full ROM, other (Negative Spurling's test). Absent: meningismus, lymphadenopathy, thyromegaly - Respiratory Respiratory exam: Present: normal lung sounds bilaterally. Absent: respiratory distress, wheezes, rales - Cardiovascular Cardiovascular Exam: Present: regular rate, normal rhythm. Absent: systolic murmur, diastolic murmur, rubs, gallop - GI/Abdominal GI/Abdominal exam: Present: soft, normal bowel sounds - Extremities Exam Extremities exam: Present: normal inspection - Back Exam Back exam: Present: normal inspection. Absent: CVA tenderness (R), CVA tenderness (L) - Neurological Exam Neurological exam: Present: alert, oriented X3, CN II-XII intact - Psychiatric Psychiatric exam: Present: normal affect, normal mood. Absent: anxious, manic - Skin Skin exam: Present: warm, dry, intact, normal color. Absent: rash, cyanosis, diaphoretic Critical care attestation.: If time is entered above; I have spent that time in minutes in the direct care of this critically ill patient, excluding procedure time. ED Disposition Clinical Impression: Chronic back pain, Dysuria Disposition: TO HOME OR SELFCARE Is pt being admited?: No Does the pt Need Aspirin: No Condition: Stable Instructions: Acute Back Pain, Adult, Dysuria, Chronic Back Pain, [id number] Additional Instructions: Utilize [id number] Tylenol and Motrin as needed for your low back pain please be sure to follow-up with the health department for complete STD panel Prescriptions: Phenazopyridine [Pyridium] 200 mg PO TID #10 tab Referrals: [facility] [Other] - 3-5 Days [facility] [Outside] - 3-5 Days Forms: Work/School Release Form(ED)
[2020-06-06 11:14] LABS: Bilirubin,Urine NEG (Negative); Blood,Urine LG (Negative); Color,Urine Yellow (Yellow); Mucus,Urine 2+ /HPF; Protein,Urine <15 mg/dL mg/dL (Negative)
[2020-06-06 11:16] LABS: HCG Qualitative,Urine Negative (Negative)
== END 2020-06-06 13:18 | disposition home or self-care (01) ==
LOC: ED 10:15
DX: R30.0 Dysuria (principal); M54.6 Pain in thoracic spine; G89.29 Other chronic pain; F17.200 Nicotine dependence, unspecified, uncomplicated; F12.10 Cannabis abuse, uncomplicated; Z98.890 Other specified postprocedural states; Z79.899 Other long term (current) drug therapy
CPT/HCPCS: 81001; 81025

== ENCOUNTER 2020-08-18 11:16 | Emergency (ER) | payer OTHER, MEDICAID ==
[2020-08-18 12:00] VITALS: BP 118/75
--- NOTE | 2020-08-18 12:00 | Event Note ---
ED Screening Note Date of service: 08/18/20 Time: 12:00 ED Screening Note: 24 y o f presents with flank pain bilateral This initial assessment/diagnostic orders/clinical plan/treatment(s) is/are subject to change based on patients health status, clinical progression and re- assessment by fellow clinical providers in the ED. Further treatment and workup at subsequent clinical providers discretion. Patient/guardian urged not to elope from the ED as their condition may be serious if not clinically assessed and managed. Initial orders include: labs, ua
[2020-08-18 12:43] LABS: Bilirubin,Urine NEG (Negative); Blood,Urine LG (Negative); Color,Urine Yellow (Yellow); Mucus,Urine 3+ /HPF
[2020-08-18 14:30] LABS: Basophils % (Auto) 0.4 % (0.0-1.8); Hematocrit 40.2 % (30.3-42.9); Hemoglobin 13.5 gm/dl (10.1-14.3); Lymphocytes # (Auto) 1.5 K/mm3 (1.2-5.4); Lymphocytes % (Auto) 14.2 % (13.4-35.0); Mean Corpuscular HGB Conc 34 % (30-34); Mean Corpuscular Volume 87 fl (79-97); Monocytes # (Auto) 1.4 K/mm3 (0.0-0.8); Monocytes % (Auto) 13.4 % (0.0-7.3); Platelet Count 214 K/mm3 (140-440); Red Cell Distribution Width 16.3 % (13.2-15.2)
[2020-08-18 14:58] LABS: Alanine Aminotransferase 10 units/L (7-56); Albumin 4.4 g/dL (3.9-5); Blood Urea Nitrogen 8 mg/dL (7-17); Calcium 9.2 mg/dL (8.4-10.2); Hemolysis Index 0
[2020-08-18 15:49] LABS: BUN/Creatinine Ratio 13
== END 2020-08-18 16:30 ==
LOC: ED 11:16
DX: R30.0 Dysuria (principal); M54.6 Pain in thoracic spine; R68.83 Chills (without fever); Z53.21 Procedure and treatment not carried out due to patient leaving prior to being seen by health care provider
CPT/HCPCS: 36415; 80053; 81001; 84703; 85025; 87086

== ENCOUNTER 2021-07-05 17:10 | Emergency (ER) | payer OTHER, MEDICAID ==
[2021-07-05 18:34] VITALS: BP 106/75
== END 2021-07-05 19:00 | disposition left against medical advice (07) ==
LOC: ED 17:10
DX: S09.93XA Unspecified injury of face, initial encounter (principal); Z53.21 Procedure and treatment not carried out due to patient leaving prior to being seen by health care provider; Y09 Assault by unspecified means; Y93.89 Activity, other specified; Y92.89 Other specified places as the place of occurrence of the external cause; Y99.8 Other external cause status